=== PATIENT | female | born 1965 | race Caucasian/White ===

== ENCOUNTER → 2017-05-27 | Outpatient (CLI) | payer BC, SELFPAY | PROVIDERS: Visit Provider Physician Assistant | DX: R53.83 Other fatigue (principal); E55.9 Vitamin D deficiency, unspecified; E03.8 Other specified hypothyroidism | CPT/HCPCS: 80053; 80061; 82306; 82607; 82746; 84436; 84443; 85025 ==

== ENCOUNTER → 2017-08-13 10:53 | Outpatient (REF) | payer BC, SELFPAY ==
[2017-08-13 18:08] LABS: Basophils # 0.1 K/mm3 (0-0.2); Basophils % 0.9 % (0.1-2.0); Eosinophils # 0.1 K/mm3 (0.0-0.4); Eosinophils % 1.3 % (0.1-12.0); Hematocrit 50.9 % (37.0-47.0); Hemoglobin 15.6 g/dL (12.2-16.2); Lymphocytes # 1.8 K/mm3 (0.7-4.5); Lymphocytes % 27.4 K/mm3 (10-50); Mean Corpuscular HGB Conc 30.6 g/dL (31.8-35.4); Mean Corpuscular Hemoglobin 29.2 pg (27.0-31.2); Mean Corpuscular Volume 95.4 fl (81-99); Mean Platelet Volume 9.4 fl (7.4-10.4); Monocytes # 0.5 K/mm3 (0.1-1.0); Neutrophils # 4.2 K/mm3 (1.8-7.8); Neutrophils % 63.4 % (37.0-80.0); Platelet Count 338 K/mm3 (142-424); Red Blood Count 5.34 M/mm3 (4.20-5.40); Red Cell Distribution Width 12.6 % (11.5-17.5); White Blood Count 6.6 K/mm3 (4.8-10.8)
[2017-08-13 19:32] LABS: Alanine Aminotransferase 34 U/L (12-78); Albumin Level 4.2 gm/dL (3.4-5.0); Albumin/Globulin Ratio 1.1 (1.1-1.8); Alkaline Phosphatase 63 U/L (46-116); Anion Gap 14.5 mEq/L (5-15); Aspartate Amino Transferase 12 U/L (15-37); Bilirubin,Total 0.3 mg/dL (0.2-1.0); Blood Urea Nitrogen 15 mg/dL (7-18); Calcium 9.3 mg/dL (8.5-10.1); Carbon Dioxide 28 mmol/L (21.0-32.0); Chloride 101 mmol/L (98-107); Chol/HDL Ratio 3.8 (1-3.5); Cholesterol 300 mg/dL (140-200); Creatinine,Serum 0.87 mg/dL (0.55-1.02); Estimated Glomerular Filt Rate 69 ml/min (>60); GFR (African American) 83 ML/MIN (>60); Globulin 3.7 gm/dl (1.3-3.2); Glucose 99 mg/dL (74-106); HDL Cholesterol 79 mg/dL (29-89); LDL Cholesterol 199 mg/dL (0-130); Magnesium 1.8 mg/dL (1.4-2.2); Potassium 4.5 mmoL/L (3.5-5.1); Sodium 139 mmol/L (136-145); T4 (Thyroxine) 12.2 ug/dl (4.7-13.3); Thyroid Stimulating Hormone 0.02 uIU/ml (0.358-3.740); Total Protein,Serum 7.9 gm/dL (6.4-8.2); Triglycerides 112 mg/dL (30-200); VLDL Cholesterol 22 mg/dL (0-40)
[2017-08-14 19:24] LABS: Vitamin B12 906 pg/mL (232-1245); Vitamin D 25 Hydroxy 43.6 ng/mL (30.0-100.0)
== END ==
LOC: LAB 10:53
PROVIDERS: Visit Provider Physician Assistant
DX: R00.2 Palpitations (principal); E03.9 Hypothyroidism, unspecified; E55.9 Vitamin D deficiency, unspecified
CPT/HCPCS: 80053; 80061; 82607; 82652; 83735; 84436; 84443; 85025

== ENCOUNTER → 2018-03-29 09:26 | Outpatient (REF) | payer BC, SELFPAY ==
[2018-03-29 13:56] LABS: Basophils # 0.1 K/mm3 (0-0.2); Basophils % 1.2 % (0.1-2.0); Eosinophils # 0.1 K/mm3 (0.0-0.4); Eosinophils % 1.3 % (0.1-12.0); Hematocrit 44.4 % (37.0-47.0); Hemoglobin 14.3 g/dL (12.2-16.2); Lymphocytes # 2.1 K/mm3 (0.7-4.5); Lymphocytes % 27.5 K/mm3 (10-50); Mean Corpuscular HGB Conc 32.2 g/dL (31.8-35.4); Mean Corpuscular Hemoglobin 29.9 pg (27.0-31.2); Mean Corpuscular Volume 92.8 fl (81-99); Mean Platelet Volume 8.5 fl (7.4-10.4); Monocytes # 0.5 K/mm3 (0.1-1.0); Monocytes % 6.3 % (1.7-9.3); Neutrophils # 4.8 K/mm3 (1.8-7.8); Neutrophils % 63.6 % (37.0-80.0); Platelet Count 330 K/mm3 (142-424); Red Blood Count 4.79 M/mm3 (4.20-5.40); Red Cell Distribution Width 12.9 % (11.5-17.5); White Blood Count 7.5 K/mm3 (4.8-10.8)
[2018-03-29 15:23] LABS: Alanine Aminotransferase 28 U/L (12-78); Albumin Level 3.6 gm/dL (3.4-5.0); Alkaline Phosphatase 67 U/L (46-116); Anion Gap 12.1 mEq/L (5-15); Aspartate Amino Transferase 15 U/L (15-37); Bilirubin,Total 0.4 mg/dL (0.2-1.0); Blood Urea Nitrogen 10 mg/dL (7-18); Calcium 8.7 mg/dL (8.5-10.1); Carbon Dioxide 30 mmol/L (21.0-32.0); Chloride 102 mmol/L (98-107); Chol/HDL Ratio 4.3 (1-3.5); Cholesterol 296 mg/dL (140-200); Creatinine,Serum 0.85 mg/dL (0.55-1.02); Estimated Glomerular Filt Rate 71 ml/min (>60); GFR (African American) 85 ML/MIN (>60); Globulin 3.5 gm/dl (1.3-3.2); Glucose 92 mg/dL (74-106); HDL Cholesterol 69 mg/dL (29-89); LDL Cholesterol 187 mg/dL (0-130); Potassium 4.1 mmoL/L (3.5-5.1); Sodium 140 mmol/L (136-145); T4 (Thyroxine) 10.8 ug/dl (4.7-13.3); Thyroid Stimulating Hormone 0.22 uIU/ml (0.358-3.740); Total Protein,Serum 7.1 gm/dL (6.4-8.2); Triglycerides 200 mg/dL (30-200); VLDL Cholesterol 40 mg/dL (0-40)
[2018-03-30 15:56] LABS: Vitamin B12 965 pg/mL (232-1245); Vitamin D 25 Hydroxy 35.4 ng/mL (30.0-100.0)
== END ==
LOC: LAB 09:26
PROVIDERS: Visit Provider Physician Assistant
DX: R53.83 Other fatigue (principal); E03.9 Hypothyroidism, unspecified; E78.5 Hyperlipidemia, unspecified; D51.9 Vitamin B12 deficiency anemia, unspecified
CPT/HCPCS: 80053; 80061; 82607; 82652; 84436; 84443; 85025

== ENCOUNTER → 2018-08-19 12:07 | Outpatient (CLI) | payer OTHER, SELFPAY ==
--- NOTE | 2018-08-19 12:15 | XR_ITS ---
XR ribs BI min 4V w CXR1V HISTORY: Recent rib fractures., Pain and deformity ITS.REASON: fracture ORDERING PHYSICIAN: SHAWN Fulton PATIENT AGE: 52 years Comparison: None FINDINGS: There are no recent exams available at this institution for comparison. Frontal view of the chest shows cardiomegaly with postmedian sternotomy change. There are multiple old bilateral rib fractures with pleural reaction right. There are old fractures of the right second through sixth ribs laterally with old fracture of the left fourth fifth and sixth ribs posteriorly. The right rib fractures are displaced with the apex of the fractures extending medially toward the lung. There has been prior vertebral plasty at T11. No evidence of pneumothorax. There is mild pleural thickening on the right with mild atelectatic changes in the right lung base. IMPRESSION: Healing bilateral rib fractures with pleural reaction on the right and mild right basilar atelectasis with small right effusion versus pleural thickening. Correlation with old exams needed.
--- NOTE | 2018-08-19 12:15 | XR_ITS ---
XR scapula RT CLINICAL INDICATION: Follow-up fracture ITS.REASON: fracture ORDERING PHYSICIAN: SHAWN Fulton PATIENT AGE: 52 years Comparison: None FINDINGS: No recent exams available for comparison. There are multiple healing right-sided rib fractures. The glenohumeral joint has an unremarkable appearance. There is some heterogeneous density in the mid scapular region which may be related to healing fracture. No displaced fracture evident. IMPRESSION: Heterogeneous density in the mid scapular region laterally which may related to healing fracture.
== END ==
PROVIDERS: PCP Emergency Medicine; Visit Provider Physician Assistant
DX: T14.8XXA Other injury of unspecified body region, initial encounter (principal)
CPT/HCPCS: 71111; 73010

== ENCOUNTER → 2018-10-20 10:03 | Outpatient (CLI) | payer OTHER, BC, SELFPAY ==
--- NOTE | 2018-10-20 10:11 | XR_ITS ---
XR ribs BI min 4V w CXR1V HISTORY: Follow-up rib fractures ITS.REASON: fracture ORDERING PHYSICIAN: SHAWN Cervantes PATIENT AGE: 52 years Comparison: 08/19/2018 FINDINGS: Frontal view of the chest shows or Cardiomegaly without failure. There has been prior median sternotomy and kyphoplasty at T11. There are multiple old bilateral rib fractures which do not appear significantly changed. Right-sided pleural thickening once again noted. No evidence of pneumothorax. No new abnormalities apparent. IMPRESSION: No change healing multiple bilateral rib fractures
== END ==
PROVIDERS: PCP Physician Assistant; Visit Provider Physician Assistant
DX: T14.8XXA Other injury of unspecified body region, initial encounter (principal); S22.43 Multiple fractures of ribs, bilateral
CPT/HCPCS: 71111

== ENCOUNTER → 2018-11-22 08:35 | Outpatient (CLI) | payer OTHER, BC, SELFPAY ==
--- NOTE | 2018-11-22 08:39 | XR_ITS ---
XR ribs BI min 4V w CXR1V HISTORY: Chest pain, follow-up rib fractures ITS.REASON: fracture ORDERING PHYSICIAN: SHAWN Cervantes PATIENT AGE: 53 years Comparison: 10/20/2018 FINDINGS: There are old bilateral rib fractures. No acute fractures are evident. There has been a prior median sternotomy and kyphoplasty of T10. No acute rib fractures evident. No lytic or blastic change. There is borderline cardiomegaly without failure. Lungs are clear bilaterally. IMPRESSION: No change old bilateral rib fractures. No acute finding
== END ==
PROVIDERS: PCP Emergency Medicine; Visit Provider Physician Assistant
DX: T14.8XXA Other injury of unspecified body region, initial encounter (principal); R07.81 Pleurodynia
CPT/HCPCS: 71111

== ENCOUNTER → 2018-12-27 07:16 | Outpatient (CLI) | payer OTHER, BC, SELFPAY ==
--- NOTE | 2018-12-27 07:20 | XR_ITS ---
XR ribs BI min 4V w CXR1V HISTORY: ITS.REASON: Fracture ORDERING PHYSICIAN: Kendall Harrison MD PATIENT AGE: 53 years Comparison: 11/22/2018. FINDINGS: Again seen are the chronic appearing bilateral rib fracture. There is no definite acute rib fracture. A frontal view of the chest shows no acute finding. Multiple views of the Left ribs were obtained. No fracture or dislocation. No lytic or blastic change. IMPRESSION: No evidence of acute rib fracture. Bilateral stable old rib fractures. No definite pleural effusion or pneumothorax.
== END ==
PROVIDERS: PCP Emergency Medicine; Visit Provider Emergency Medicine
DX: S22.43XK Multiple fractures of ribs, bilateral, subsequent encounter for fracture with nonunion (principal); T14.8XXA Other injury of unspecified body region, initial encounter
CPT/HCPCS: 71111

== ENCOUNTER 2019-01-21 09:00 | Outpatient (RCR) | payer OTHER, BC, SELFPAY | END 2019-01-21 09:05 | disposition home or self-care (01) | LOC: OT 09:00 | DX: S42.101A Fracture of unspecified part of scapula, right shoulder, initial encounter for closed fracture (principal) | CPT/HCPCS: 97014; 97035; 97110; 97140; 97164; 97165; G0283 ==

== ENCOUNTER → 2019-01-21 15:54 | Outpatient (CLI) | payer OTHER, SELFPAY ==
--- NOTE | 2019-01-21 15:57 | XR_ITS ---
PROCEDURE: XR RIBS BI MIN 4V W CXR1V CLINICAL INDICATION: Fracture Lower posterior rib pain COMPARISON: CXR CHEST(2 VIEWS-NOT PORTABLE) from 02/18/2014 CXR CHEST(2 VIEWS-NOT PORTABLE) from 11/09/2014 [id number] XR ribs BI min 4V w CXR1V from 08/19/2018 FINDINGS: Frontal view of the chest shows prior median sternotomy changes. There are multiple old bilateral rib fractures. No acute rib fractures evident. There has been prior kyphoplasty at T11. IMPRESSION: Old bilateral rib fractures, no acute finding Dictated by: Armond Patterson MD 01/21/2019 16:20 Signed by: <Electronically signed by Armond Patterson MD in [place]> 01/21/2019 16:20
== END ==
PROVIDERS: PCP Physician Assistant; Visit Provider Physician Assistant
DX: S22.39XA Fracture of one rib, unspecified side, initial encounter for closed fracture (principal)
CPT/HCPCS: 71111

== ENCOUNTER → 2019-03-02 14:58 | Outpatient (CLI) | payer BC, SELFPAY | PROVIDERS: Visit Provider Physician Assistant | DX: N39.0 Urinary tract infection, site not specified (principal) | CPT/HCPCS: 87086 ==

== ENCOUNTER → 2019-03-09 13:32 | Outpatient (CLI) | payer BC, SELFPAY | PROVIDERS: Visit Provider Physician Assistant | DX: N39.0 Urinary tract infection, site not specified (principal) | CPT/HCPCS: 87086 ==

== ENCOUNTER → 2019-08-24 14:50 | Outpatient (CLI) | payer OTHER, BC, SELFPAY ==
--- NOTE | 2019-08-24 14:50 | CT_ITS ---
PROCEDURE: CT CHEST WO CON CLINICAL INDICATION: Pulmonary Nodule Follow-up pulmonary nodule. Outside CT scan report from 02/04/2019 described an 8 mm pulmonary nodule in the right middle lobe. That study is not available for review. COMPARISON: ABDPELW/O CT ABD PELVIS W/O CONTRAST from 02/27/2017 TECHNIQUE: Axial images obtained with sagittal and coronal reformats. All CT scans at the facility use one or more dose reduction, viz: automated exposure control, ma/kV adjustment per patient size (including targeted exams where dose is matched to indication, i.e. head), or iterative reconstruction technique. FINDINGS: HEART AND MEDIASTINAL STRUCTURES: Unremarkable. LUNGS AND PLEURAL SPACES: No suspicious pulmonary nodules are evident. Calcified granuloma is present in the lingula. Calcified granuloma is present in the superior segment of left lower lobe. There is some irregular parenchymal opacity noted in the right middle lobe inferiorly probably related to pulmonary scarring. Would attempt to obtain old films for comparison. If no old films are made available then would recommend follow-up exam in 6 months. BONY STRUCTURES: Prior kyphoplasty at T11. midthoracic scoliosis convex right. There are multiple old bilateral rib fractures UPPER ABDOMEN: Nonobstructing 5 mm stone in the upper pole of the left kidney ADDITIONAL FINDINGS: No other significant abnormalities. IMPRESSION: 1. Probable scarring in the right middle lobe. Will attempt to obtain old films for comparison. Recommend follow-up in 6 months. 2. Left nephrolithiasis. Dictated by: Armond Patterson MD 08/26/2019 09:07 Electronically signed by Armond Patterson MD in [place] 08/26/2019 09:07
== END ==
PROVIDERS: PCP Physician Assistant; Visit Provider Physician Assistant
DX: R91.1 Solitary pulmonary nodule (principal)
CPT/HCPCS: 71250

== ENCOUNTER → 2019-10-26 13:28 | Outpatient (CLI) | payer OTHER, BC, SELFPAY ==
[2019-10-26 14:03] LABS: Alanine Aminotransferase 24 U/L (12-78); Albumin Level 4.4 g/dl (3.5-5.0); Albumin/Globulin Ratio 1.5 (1.1-1.8); Alkaline Phosphatase 47 U/L (38-126); Anion Gap 9.9 mEq/L (5-15); Aspartate Amino Transferase 29 U/L (14-36); Bilirubin,Total 0.4 mg/dl (0.2-1.3); Blood Urea Nitrogen 19 mg/dl (7-17); Calcium 9.5 mg/dl (8.4-10.2); Carbon Dioxide 28 mmol/L (22.0-30.0); Chloride 103 mmol/L (98-107); Chol/HDL Ratio 3.8 (1-3.5); Cholesterol 282 mg/dl (140-200); Estimated Glomerular Filt Rate 75 ml/min (>60); GFR (African American) 91 ML/MIN (>60); Globulin 2.9 g/dL (1.3-3.2); Glucose 109 mg/dl (74-100); HDL Cholesterol 75 mg/dl (40-60); Potassium 4.9 mmoL/L (3.5-5.1); Sodium 136 mmol/L (136-145); Total Protein,Serum 7.3 g/dl (6.3-8.2); Triglycerides 131 mg/dl (30-150); VLDL Cholesterol 26 mg/dL (0-40)
[2019-10-26 14:20] LABS: T4 (Thyroxine) 5.5 ug/dl (5.53-11.0)
[2019-10-26 14:27] LABS: Basophils # 0.1 K/mm3 (0-0.2); Basophils % 1.2 % (0.1-2.0); Eosinophils # 0.1 K/mm3 (0.0-0.4); Eosinophils % 1.4 % (0.1-12.0); Hematocrit 44.8 % (37.0-47.0); Hemoglobin 13.8 g/dL (12.2-16.2); Lymphocytes # 1.9 K/mm3 (0.7-4.5); Lymphocytes % 34.4 % (10-50); Mean Corpuscular HGB Conc 30.7 g/dL (31.8-35.4); Mean Corpuscular Hemoglobin 29.7 pg (27.0-31.2); Mean Corpuscular Volume 96.8 fl (81-99); Mean Platelet Volume 8.9 fl (7.4-10.4); Monocytes # 0.3 K/mm3 (0.1-1.0); Monocytes % 5.4 % (1.7-9.3); Neutrophils # 3.2 K/mm3 (1.8-7.8); Neutrophils % 57.6 % (37.0-80.0); Platelet Count 309 K/mm3 (142-424); Red Blood Count 4.62 M/mm3 (4.20-5.40); Red Cell Distribution Width 12.9 % (11.5-17.5); White Blood Count 5.6 K/mm3 (4.8-10.8)
[2019-10-27 11:38] LABS: Vitamin B12 576 pg/mL (232-1245); Vitamin D 25 Hydroxy 25.4 ng/mL (30.0-100.0)
== END ==
PROVIDERS: Visit Provider Physician Assistant
DX: E03.9 Hypothyroidism, unspecified (principal); E55.9 Vitamin D deficiency, unspecified; E78.5 Hyperlipidemia, unspecified; D51.9 Vitamin B12 deficiency anemia, unspecified
CPT/HCPCS: 80053; 80061; 82607; 82652; 84436; 84443; 85025

== ENCOUNTER → 2019-11-07 15:27 | Outpatient (CLI) | payer OTHER, SELFPAY ==
--- NOTE | 2019-11-07 15:30 | MM_ITS ---
PROCEDURE: MM DIG SCREENING MAMM BI W/CAD Digital Breast Tomosynthesis Included CLINICAL INDICATION: Screening There is a history of breast cancer patient's maternal grandmother diagnosed before menopause. There has been previous breast reduction surgery performed in 2017. COMPARISON: DMDXUAVL DIG MAMM-DX UNI ADD VIEWS-LT from 12/02/2012 DMDXUL DIG MAMM-DX UNI-LT from 06/30/2013 DMSB DIG MAMM-SCREEN ALEXANDER W/CAD from 03/19/2017 TECHNIQUE: Standard CC and MLO images and 3D Tomosynthesis was obtained. R2 CAD reviewed. FINDINGS: Mild scattered fibroglandular densities are seen throughout both breasts. Minimal post surgical scarring is seen in each breast. Nikolay images were reviewed showing no suspicious abnormality. There are no suspicious microcalcifications. IMPRESSION: Fibrofatty parenchyma with no suspicious lesions seen BI-RAD Category: 1 Negative FOLLOW-UP: 1YR 1 Year Follow-up (A letter has been sent to the patient regarding results of the study.) Dictated by: Dr. Sterilng Little MD 11/08/2019 07:[address] Sterling Little MD in [place] 11/08/2019 07:42
== END ==
PROVIDERS: PCP Physician Assistant; Visit Provider Physician Assistant
DX: Z12.31 Encounter for screening mammogram for malignant neoplasm of breast (principal)
CPT/HCPCS: 77063; 77067

== ENCOUNTER → 2020-03-05 08:53 | Outpatient (CLI) | payer OTHER, SELFPAY ==
[2020-03-05 10:34] LABS: Coronavirus 19 IgG Antibody Negative (Negative); Coronavirus 19 IgM Antibody Negative (Negative)
== END ==
PROVIDERS: Visit Provider Surgery
DX: Z01.89 Encounter for other specified special examinations (principal); Z13.810 Encounter for screening for upper gastrointestinal disorder; Z12.11 Encounter for screening for malignant neoplasm of colon
CPT/HCPCS: 36415; 86328

== ENCOUNTER 2020-03-06 07:31 | Day surgery (SDC) | payer OTHER, SELFPAY ==
[2020-03-05 11:05] VITALS: BMI 26.6
[2020-03-06] VITALS (9 sets, daily range): BP systolic 95–127; BP diastolic 60–82; PULSE 62–77; RESP 12–18; TEMP 36.2–36.5; O2SAT 96–99
--- NOTE | 2020-03-06 08:34 | HMH.ANESCL ---
[facility] Anesthesia Checklist - Patient Identification Patient Identification: Arm Band - Structural Data Admitted From: Home Planned Operative Procedure/s: egd/colonoscopy Consent for Planned Operative Procedure(s) Verified: Yes Verified Documents: Surgical Consent, History and Physical - NPO Status Verified Time NPO: 00:00 - Additional verifications Anesthesia Reactions: No - Airway Assessment C-Spine Mobility Assessed: Yes (mp2) TMJ Mobility Assessed: Yes Dentition: Good Dentition - Neurological Assessment Level of Consciousness: Awake, Alert - Anesthesia Plan Anesthesia Risk discussed: Yes Anesthesia Plan: Verified ASA Class: II Anesthesia Type: MAC [facility] History I have reviewed the patient's past medical history: Yes Medical History: Reports:: Arrhythmia, Cancer (thyroid), Hyperlipidemia Denies:: Diabetes Mellitus Type 1, Diabetes Mellitus Type 2, Internal Pacemaker, MRSA, Seizures *Have you ever received a pneumonia vaccine?: No *Have you received a flu vaccine this season?: No Other Medical History: Reports: Thyroid Disease Anesthesia experience/problems:: nac Laterality Cases: Bilateral: Tonsillectomy Other Surgeries: Yes: Appendectomy, Cardiac Surgery, Cholecystectomy, Colonoscopy, EGD, Hysterectomy-Total, Thyroidectomy, Other. No: Pacemaker Amputation: No Fractures: Yes - *Social History Last grade of school completed: Some college Smoking Status: Never smoker Alcohol Intake: current Alcohol Intake Frequency:: holidays/special occasions only Substance Use Type: denies use *Occupational Status:: employed Housing: house Household Members: spouse *Travel in the last 8 weeks: None Family Hx:: Cancer, Stroke, Heart Attack, Hypertension, Thyroid Disorder
--- NOTE | 2020-03-06 09:36 | HMH.SCOPE ---
- Procedure: Date: 03/06/20 Patient Date of :: 1965 Procedure Performed:: Esophagogastroduodenoscopy with biopsies and injection epinephrine and clip deployment Total colonoscopy with polypectomy by biopsy and snare. Indications:: A 54-year-old female referred for possible upper endoscopy and colonoscopy. I had actually seen her in the past. She has reported history of traumatic brain injury and ADD D. She describes a longstanding history of stomach trouble . This is been going on for years. She has had multiple upper endoscop[place] [address] Giuliano Francis and I had performed upper endoscopy 10/21/2005, 01/25/2013, 08/07/2015. She has had findings in the past consistent with gastritis and esophagitis. She had been treated with Dexilant which helped her symptoms but insurance is reportedly no longer covering this. She has taken omeprazole and this is only minimally helpful. She describes occasional flareups of gastritis characterized by abdominal pain and bloating with symptoms of dyspepsia and heartburn. She does have a family history of colon cancer with an aunt and grandfather who had colon cancer. She has had some passage of blood with bowel movements. She had colonoscopy on 02/15/2013 with a couple of diminutive polyps and diverticuli. I had recommended a 5-year follow-up colonoscopy. Performing Provider:: Jabier Costa MD Referring Provider:: Jemma Gonzáles Sedation:: MAC sedation Procedure:: Patient was taken to endoscopy procedure room. She was positioned in a lateral decubitus position. Adequate intravenous sedation was achieved. Olympus endoscope was inserted via the oropharynx. Majority of the esophagus appeared unremarkable. Gastroesophageal junction was encountered at approximately 35 cm from the incisors. There was some erosive esophagitis and possible Ellis's esophagus. Stomach was cannulated and insufflated. She had a small sliding hiatal hernia. There were a couple of small possible fundic gland polyps. Gastric antral mucosal biopsy was obtained for CLOtest for H. pylori. Pylorus was traversed. Duodenum was unremarkable. Gastric biopsy was obtained for histopathologic analysis. Couple biopsies were obtained of the gastric polyps. Endoscope was withdrawn into the distal esophagus. A couple of biopsies were obtained at the gastroesophageal junction/distal esophagus where there is evidence of possible Ellis's and erosive esophagitis. There is some minor oozing. To ensure hemostasis epinephrine was injected. Total of 7.5 mL was injected. There appeared to be good hemostasis. However Endo Clip was deployed to ensure hemostasis. Endoscope was then advanced into the stomach which was desufflated. Endoscope was withdrawn. Next attention was turned to colonoscopy. Variable stiffness Olympus colonoscope was inserted via the anus. With some minor difficulty due to floppiness of the sigmoid colon it was advanced to the cecum. Colonic preparation was fair as there was undigested vegetable food matter and unabsorbed medication within the colon. Ileocecal valve and appendiceal orifice were clearly identified. On the ileocecal valve there is a minor mucosal irregularity which was biopsied with cold biopsy forceps. Colonoscope was withdrawn through the colon. At the hepatic flexure there is a small polyp removed with cold cutting snare. Transverse colon there was a diminutive polyp removed with cold biopsy forceps. In the sigmoid colon there were 3 small polyps removed with cold cutting snare. Retroflexion within the rectum revealed no evidence of any pathologic internal hemorrhoids. Colonoscope was withdrawn. Findings:: Distal erosive esophagitis Mild nonerosive gastritis Probable fundic gland polyps Minor mucosal irregularity, likely lymphoid nodule, on the ileocecal valve Hepatic flexure polyp Transverse colon polyp Sigmoid colon polyp x3 Recommendations:: Follow-up on histopatholog
== END 2020-03-06 10:38 | disposition home or self-care (01) ==
LOC: OUTP 07:32
PROVIDERS: PCP Physician Assistant; Visit Provider Surgery
PROC: 0DJ08ZZ Inspection of Upper Intestinal Tract, Via Natural or Artificial Opening Endoscopic (ICD-10-PCS; CPT 43235; principal; 2020-03-06 08:30)
DX: Z12.11 Encounter for screening for malignant neoplasm of colon (principal); K63.5 Polyp of colon; K22.10 Ulcer of esophagus without bleeding; K29.60 Other gastritis without bleeding; K31.7 Polyp of stomach and duodenum; K63.89 Other specified diseases of intestine; Z87.19 Personal history of other diseases of the digestive system; Z86.010 Personal history of colon polyps; E78.5 Hyperlipidemia, unspecified; I49.9 Cardiac arrhythmia, unspecified; Z85.850 Personal history of malignant neoplasm of thyroid; Z90.89 Acquired absence of other organs
CPT/HCPCS: 45385; 45380; 43236; 43239; 87339

== ENCOUNTER → 2020-04-11 17:52 | Outpatient (CLI) | payer OTHER, BC, SELFPAY ==
[2020-04-11 18:47] LABS: Basophils # 0.1 K/mm3 (0-0.2); Basophils % 0.9 % (0.1-2.0); Eosinophils # 0.1 K/mm3 (0.0-0.4); Eosinophils % 2.3 % (0.1-12.0); Hematocrit 42.7 % (37.0-47.0); Lymphocytes # 1.8 K/mm3 (0.7-4.5); Lymphocytes % 30.1 % (10-50); Mean Corpuscular HGB Conc 30.5 g/dL (31.8-35.4); Mean Corpuscular Hemoglobin 29.2 pg (27.0-31.2); Mean Corpuscular Volume 95.6 fl (81-99); Mean Platelet Volume 8.8 fl (7.4-10.4); Monocytes # 0.4 K/mm3 (0.1-1.0); Monocytes % 6.3 % (1.7-9.3); Neutrophils # 3.5 K/mm3 (1.8-7.8); Neutrophils % 60.4 % (37.0-80.0); Platelet Count 281 K/mm3 (142-424); Red Blood Count 4.46 M/mm3 (4.20-5.40); Red Cell Distribution Width 12.2 % (11.5-17.5); White Blood Count 5.9 K/mm3 (4.8-10.8)
[2020-04-11 18:51] LABS: Alanine Aminotransferase 21 U/L (12-78); Albumin Level 4.4 g/dl (3.5-5.0); Albumin/Globulin Ratio 1.5 (1.1-1.8); Alkaline Phosphatase 59 U/L (38-126); Anion Gap 13.2 mEq/L (5-15); Aspartate Amino Transferase 26 U/L (14-36); Bilirubin,Total 0.4 mg/dl (0.2-1.3); Blood Urea Nitrogen 17 mg/dl (7-17); Calcium 9.3 mg/dl (8.4-10.2); Carbon Dioxide 30 mmol/L (22.0-30.0); Chloride 103 mmol/L (98-107); Chol/HDL Ratio 4.8 (1-3.5); Cholesterol 322 mg/dl (140-200); Estimated Glomerular Filt Rate 65 ml/min (>60); GFR (African American) 79 ML/MIN (>60); Globulin 2.9 g/dL (1.3-3.2); Glucose 106 mg/dl (74-100); HDL Cholesterol 67 mg/dl (40-60); Potassium 4.2 mmoL/L (3.5-5.1); Sodium 142 mmol/L (136-145); Total Protein,Serum 7.3 g/dl (6.3-8.2); Triglycerides 319 mg/dl (30-150); VLDL Cholesterol 64 mg/dL (0-40)
[2020-04-11 19:03] LABS: Direct LDL Cholesterol 197.12 mg/dL (100-129)
[2020-04-11 19:08] LABS: T4 (Thyroxine) 6.3 ug/dl (5.53-11.0)
[2020-04-11 19:09] LABS: 25-OH Vitamin D, Total 22.9 ng/mL (30-100)
[2020-04-11 19:21] LABS: Thyroid Stimulating Hormone 2.94 uIU/mL (0.465-4.68)
== END ==
PROVIDERS: Visit Provider Physician Assistant
DX: E03.9 Hypothyroidism, unspecified (principal); E55.9 Vitamin D deficiency, unspecified; E78.5 Hyperlipidemia, unspecified
CPT/HCPCS: 80053; 80061; 82306; 84436; 84443; 85025

== ENCOUNTER → 2020-06-06 11:09 | Outpatient (CLI) | payer OTHER, BC, SELFPAY ==
[2020-06-06 11:39] LABS: Basophils # 0.1 K/mm3 (0-0.2); Basophils % 1.5 % (0.1-2.0); Eosinophils # 0.2 K/mm3 (0.0-0.4); Hematocrit 47.3 % (37.0-47.0); Hemoglobin 15.6 g/dL (12.2-16.2); Lymphocytes # 1.9 K/mm3 (0.7-4.5); Lymphocytes % 33.5 % (10-50); Mean Corpuscular Hemoglobin 30.5 pg (27.0-31.2); Mean Corpuscular Volume 92.5 fl (81-99); Mean Platelet Volume 7.8 fl (7.4-10.4); Monocytes # 0.4 K/mm3 (0.1-1.0); Monocytes % 6.7 % (1.7-9.3); Neutrophils # 3.1 K/mm3 (1.8-7.8); Neutrophils % 55.3 % (37.0-80.0); Platelet Count 299 K/mm3 (142-424); Red Blood Count 5.11 M/mm3 (4.20-5.40); Red Cell Distribution Width 12.8 % (11.5-17.5); White Blood Count 5.5 K/mm3 (4.8-10.8)
[2020-06-06 12:13] LABS: Alanine Aminotransferase 36 U/L (12-78); Albumin Level 5.2 g/dl (3.5-5.0); Albumin/Globulin Ratio 1.3 (1.1-1.8); Alkaline Phosphatase 73 U/L (38-126); Anion Gap 13.9 mEq/L (5-15); Aspartate Amino Transferase 38 U/L (14-36); Bilirubin,Total 0.7 mg/dl (0.2-1.3); Blood Urea Nitrogen 13 mg/dl (7-17); Carbon Dioxide 31 mmol/L (22.0-30.0); Chloride 97 mmol/L (98-107); Estimated Glomerular Filt Rate 65 ml/min (>60); GFR (African American) 79 ML/MIN (>60); Globulin 3.9 g/dL (1.3-3.2); Glucose 104 mg/dl (74-100); Potassium 3.9 mmoL/L (3.5-5.1); Sodium 138 mmol/L (136-145); Total Protein,Serum 9.1 g/dl (6.3-8.2)
[2020-06-06 12:18] LABS: C-Reactive Protein 2.1 mg/L (0-4)
[2020-06-06 12:41] LABS: Erythrocyte Sedimentation Rate 17 mm/hr (0-30)
[2020-06-07 11:50] LABS: RA Latex Turbid. <10.0 IU/mL (0.0-13.9)
[2020-06-07 15:10] LABS: Anti-Centromere B Antibodies <0.2 AI (0.0-0.9); Anti-Jo-1 <0.2 AI (0.0-0.9); Anti-Smith Antibody <0.2 AI (0.0-0.9); Antichromatin Antibodies <0.2 AI (0.0-0.9); Antiscleroderma-70 Antibodies <0.2 AI (0.0-0.9); RNP Antibodies 0.2 AI (0.0-0.9); Sjogren's Anti-SS-A <0.2 AI (0.0-0.9); Sjogren's Anti-SS-B <0.2 AI (0.0-0.9)
[2020-06-07 15:17] LABS: Anti-DNA (DS) Ab Qn <1 IU/mL (0-9)
[2020-06-08 00:07] LABS: PTT-LA 30.2 sec (0.0-51.9); dRVVT 38.6 sec (0.0-47.0)
[2020-06-08 02:33] LABS: Anti-Cyclic Citrullinated Pept 5 units (0-19)
[2020-06-08 02:34] LABS: Lupus Reflex Interpretation Comment: (.)
== END ==
PROVIDERS: Visit Provider Physician Assistant
DX: M25.522 Pain in left elbow (principal); M25.542 Pain in joints of left hand; M25.9 Joint disorder, unspecified; M25.521 Pain in right elbow; M25.541 Pain in joints of right hand
CPT/HCPCS: 36415; 80053; 85025; 85613; 85651; 86140; 86200; 86225; 86235; 86431; 86618

== ENCOUNTER → 2020-08-17 10:13 | Outpatient (CLI) | payer OTHER, BC, SELFPAY ==
--- NOTE | 2020-08-17 10:13 | US_ITS ---
PROCEDURE: US BREAST RT COMPLETE CLINICAL INDICATION: lump Tender area right breast COMPARISON: No exams were available for comparison FINDINGS: Ultrasound survey performed of the right breast including axilla. No cystic or solid nodules are identified. There are few small nodes in the right axilla 1 of which measures 3 cm. IMPRESSION: No cystic or solid nodules apparent. There is a mildly prominent right axillary lymph node at 3 cm. If adenopathy is a concern then, CT with contrast may be of further value. Negative ultrasound does not exclude pathology in the breast. If there is indeed a palpable nodule in the breast, then diagnostic mammogram may provide further evaluation. Dictated by: Armond Patterson MD 08/23/2020 08:36 Armond Patterson MD in [place] 08/23/2020 08:36
== END ==
PROVIDERS: PCP Physician Assistant; Visit Provider Obstetrics & Gynecology
DX: N63.10 Unspecified lump in the right breast, unspecified quadrant (principal)
CPT/HCPCS: 76641

== ENCOUNTER → 2020-08-30 13:30 | Outpatient (CLI) | payer OTHER, BC, SELFPAY ==
--- NOTE | 2020-08-30 13:30 | MM_ITS ---
PROCEDURE: MM DIG MAMM DX UNILAT RT CAD Digital Breast Tomosynthesis Included CLINICAL INDICATION: mass Right breast thickness with pain COMPARISON: MG DMDXUL DIG MAMM-DX UNI-LT from 06/30/2013 MG DMSB DIG MAMM-SCREEN ALEXANDER W/CAD from 03/19/2017 MG MM DIG SCREENING MAMM BI W/CAD from 11/07/2019 US US BREAST RT COMPLETE from 08/17/2020 TECHNIQUE: Standard CC and MLO images and 3D Tomosynthesis was obtained. R2 CAD reviewed. FINDINGS: Patient has had right breast reduction. Linear areas of increased density are noted in the upper outer aspect of the right breast which has developed since the reduction consistent with some scarring. No malignant appearing mass or malignant-appearing microcalcification.. On the CC view there was a questionable stellate density in the outer aspect of the right breast which did not persist on and XCC view. This is also not duplicated on the tomogram images. Recent ultrasound of the right breast was noncontributory. IMPRESSION: No evidence of malignancy. Postsurgical changes. Negative mammogram and negative ultrasound does not exclude the possibility of malignancy. If there is a palpable nodule then, it should be managed on clinical basis. Suggest follow-up screening mammogram bilaterally November 2020. BI-RAD Category: 2 Benign Finding(s) FOLLOW-UP: 3M 3 Month Follow-up (A letter has been sent to the patient regarding results of the study.) Dictated by: Armond Patterson MD 08/31/2020 13:54 Armond Patterson MD in [place] 08/31/2020 13:54
== END ==
PROVIDERS: PCP Physician Assistant; Visit Provider Obstetrics & Gynecology
DX: N63.10 Unspecified lump in the right breast, unspecified quadrant (principal); N64.4 Mastodynia
CPT/HCPCS: 77061; 77065; G0279

== ENCOUNTER 2020-09-10 09:59 | Emergency (ER) | payer OTHER, BC, SELFPAY ==
[2020-09-10 10:03] VITALS: BP 130/72; PULSE 85; RESP 16; TEMP 36.3; O2SAT 95; BMI 27.1
--- NOTE | 2020-09-10 10:12 | CT_ITS ---
PROCEDURE: CT ABDOMEN PELVIS WO CON CLINICAL INDICATION: epigastric pain Epigastric pain with vomiting and diarrhea COMPARISON: CT ABDPELW/O CT ABD PELVIS W/O CONTRAST from 02/27/[address] CHEST WO CON from 08/24/2019 TECHNIQUE: Axial images obtained with sagittal and coronal reformats. All CT scans at the facility use one or more dose reduction, viz: automated exposure control, ma/kV adjustment per patient size (including targeted exams where dose is matched to indication, i.e. head), or iterative reconstruction technique. FINDINGS: LOWER THORAX: No acute finding ABDOMEN & PELVIS: Prior cholecystectomy. There is a 12 mm hypodensity in the right hepatic lobe inferiorly indeterminate. The liver is otherwise unremarkable. The spleen, adrenal glands, and pancreas has an unremarkable unenhanced appearance. There are small bilateral renal calculi measuring up 4 mm in the upper pole on the left and 2 mm in the mid polar region on the right. No ureteral calculi parent. No intestinal obstruction or free air. There is given history of prior appendectomy. There are few colonic diverticula within the sigmoid colon. No evidence of diverticulitis. Prior hysterectomy. There are some fluid-filled loops of small and large bowel with a few nonspecific air-fluid levels. No significant distension. Prior kyphoplasty at T11 with mild wedge compression changes of T11 unchanged. L5 has a corrugated appearance consistent with hemangioma involvement. Injection granulomas are present within the buttocks. IMPRESSION: Possible mild enteritis 12 mm indeterminate lesion of the right hepatic lobe. Consider nonemergent MRI with hemangioma protocol without and with gadolinium enhancement. Colonic diverticulosis without evidence of diverticulitis. Nonobstructing bilateral renal calculi Dictated by: Armond Patterson MD 09/10/2020 11:13 Armond Patterson MD in [place] 09/10/2020 11:13
--- NOTE | 2020-09-10 10:16 | PC.NURSE ---
notified rad of CT order
--- NOTE | 2020-09-10 10:25 | PC.NURSE ---
pt to CT
--- NOTE | 2020-09-10 10:39 | PC.NURSE ---
per lab pt specimens were all specimens were hemolyzed, states they will come down and recollect specimens
[2020-09-10 10:41] LABS: Basophils # 0.1 K/mm3 (0-0.2); Basophils % 0.4 % (0.1-2.0); Eosinophils # 0.2 K/mm3 (0.0-0.4); Eosinophils % 1.9 % (0.1-12.0); Hematocrit 45.5 % (37.0-47.0); Lymphocytes # 1.8 K/mm3 (0.7-4.5); Lymphocytes % 15.7 % (10-50); Mean Corpuscular HGB Conc 30.7 g/dL (31.8-35.4); Mean Corpuscular Volume 94.5 fl (81-99); Mean Platelet Volume 8.1 fl (7.4-10.4); Monocytes # 0.5 K/mm3 (0.1-1.0); Monocytes % 4.2 % (1.7-9.3); Neutrophils % 77.7 % (37.0-80.0); Platelet Count 277 K/mm3 (142-424); Red Blood Count 4.82 M/mm3 (4.20-5.40); Red Cell Distribution Width 12.5 % (11.5-17.5); White Blood Count 11.6 K/mm3 (4.8-10.8)
[2020-09-10 11:04] LABS: Chloride 104 mmol/L (98-107); Potassium 4.3 mmoL/L (3.5-5.1); Sodium 138 mmol/L (136-145)
[2020-09-10 11:06] LABS: Alanine Aminotransferase 23 U/L (12-78); Aspartate Amino Transferase 32 U/L (14-36); Blood Urea Nitrogen 14 mg/dl (7-17); Creatinine Clearance Estimated 112 mL/min (50-200); Estimated Glomerular Filt Rate 88 ml/min (>60); GFR (African American) 106 ML/MIN (>60)
[2020-09-10 11:07] LABS: Albumin Level 4.3 g/dl (3.5-5.0); Albumin/Globulin Ratio 1.5 (1.1-1.8); Alkaline Phosphatase 60 U/L (38-126); Anion Gap 10.3 mEq/L (5-15); Bilirubin,Total 0.6 mg/dl (0.2-1.3); Calcium 9.2 mg/dl (8.4-10.2); Carbon Dioxide 28 mmol/L (22.0-30.0); Globulin 2.9 g/dL (1.3-3.2); Glucose 116 mg/dl (74-100); Lipase 36 U/L (23-300); Total Protein,Serum 7.2 g/dl (6.3-8.2)
[2020-09-10 11:20] LABS: Troponin I < 0.01 ng/ml (0.00-0.034)
[2020-09-10 11:46] VITALS: BP 132/88; PULSE 82; O2SAT 96
--- NOTE | 2020-09-10 11:48 | HMH.EDNVD ---
ED Disposition Clinical Impression: Gastroenteritis Disposition: Home, Self-Care Condition on Discharge: Good Instructions: DI for Viral Gastroenteritis -- Adult Prescriptions: Promethazine HCl [Phenergan 25mg tablet] 25 mg PO Q8HP PRN #12 tab PRN Reason: Nausea And Vomiting Transmission Status: Pending to [facility] Referrals: Jemma Gonzáles PA [Primary Care Provider] - - Critical Care Critical Care Time: No Attestation: On 09/10/20, the high probability of a clinically significant, sudden or life threatening deterioration of the following system(s) required my full and direct attention, intervention and personal management. The time I documented below is in addition to time spent performing reported procedures but includes the following listed in this critical care notation. Medical Decision Making - Medical Records Medical records reviewed: Yes: I reviewed the patient's medical records. - Abraham Inquiry Pt receiving controlled substance: No Vital Signs: 09/10/20 10:03 Temperature 97.4 F L Temperature Source Oral Pulse Rate [Right Radial] 85 Respiratory Rate 16 Blood Pressure [Right Arm] 130/72 Blood Pressure Mean [Right Arm] 91 Blood Pressure Source [Right Arm] Automatic Cuff Blood Pressure Position [Right Arm] Sitting 02 Sat by Pulse Oximetry 95 Oxygen Delivery Method Room Air - Lab Data Lab Results 09/10/20 10:15: WBC 11.6 H, RBC 4.82, Hgb 14.0, Hct 45.5, MCV 94.5, MCH 29.0, MCHC 30.7 L, RDW 12.5, Plt Count 277, MPV 8.1, Neut % (Auto) 77.7, Lymph % (Auto) 15.7, [place] % (Auto) 4.2, Eos % (Auto) 1.9, Baso % (Auto) 0.4, Neut # (Auto) 9.0 H, Lymph # (Auto) 1.8, [place] # (Auto) 0.5, Eos # (Auto) 0.2, Baso # (Auto) 0.1 09/10/20 10:55: Sodium 138, Potassium 4.3, Chloride 104, Carbon Dioxide 28, Anion Gap 10.3, BUN 14, Creatinine 0.70, Estimated Creat Clear 112, Estimated GFR 88, Est GFR ( Amer) 106, Glucose 116 H, Calcium 9.2, Total Bilirubin 0.6, AST 32, ALT 23, Alkaline Phosphatase 60, Troponin I < 0.01, Total Protein 7.2, Albumin 4.3, Globulin 2.9, Albumin/Globulin Ratio 1.5, Lipase 36 Result diagrams: 09/10/20 10:15 09/10/20 10:55 Orders (Tests/Meds): ED MEDICATIONS Generic Name Dose Route Start Last Admin Trade Name Freq PRN Reason Stop Dose Admin Sodium Chloride 10 ml 09/10/20 10:12 Sodium Chloride 0.9% 10ml Vial IV 10/10/20 10:11 NEEDED PRN dilute protonix Discontinued Medications Generic Name Dose Route Start Last Admin Trade Name Freq PRN Reason Stop Dose Admin Sodium Chloride 1,000 mls @ 999 mls/hr 09/10/20 10:15 09/10/20 10:19 Sod Chlor 0.9% 1000ml Bag IV 09/10/20 11:15 999 mls/hr .Q1H1M CARMELITA Administration Pantoprazole Sodium 40 mg 09/10/20 10:12 09/10/20 10:19 Pantoprazole 40mg Vial IV 09/10/20 10:13 40 mg ONCE ONE Administration Promethazine HCl 25 mg 09/10/20 11:36 09/10/20 11:39 Promethazine Hcl 25mg/Ml 1ml Vial IV 09/10/20 11:37 25 mg ONCE ONE Administration Sodium Chloride 25 ml 09/10/20 11:36 09/10/20 11:39 Sodium Chloride 0.9% 25ml Bag IV 09/10/20 11:37 25 ml ONCE ONE Administration ORDERS Category Date Time Status Troponin I Q3H Lab 09/10/20 13:55 Ordered Troponin I Q3H Lab 09/10/20 16:55 Ordered - CT Data CT Scan: Abdomen, Pelvis Time Received: 11:[address] Reviewed: Yes: I have reviewed the patient's CT results, I have viewed the radiologist's interpretation Findings Narrative: IMPRESSION: Possible mild enteritis 12 mm indeterminate lesion of the right hepatic lobe. Consider nonemergent MRI with hemangioma protocol without and with gadolinium enhancement. Colonic diverticulosis without evidence of diverticulitis. Nonobstructing bilateral renal calculi - Reevaluation(s) Time: 11:59 Reevaluation #1: On reevaluation, patient is feeling better. Pain is improved. Nausea is also improved. She is tolerating oral intake. Findings are consiste
[2020-09-10 12:45] VITALS: BP 133/86; PULSE 80; RESP 16; TEMP 36.3; O2SAT 98
== END 2020-09-10 12:45 | disposition home or self-care (01) ==
PROVIDERS: Emergency Provider Emergency Medicine; PCP Physician Assistant
DX: K52.9 Noninfective gastroenteritis and colitis, unspecified (principal); E78.5 Hyperlipidemia, unspecified; E03.9 Hypothyroidism, unspecified; Z79.899 Other long term (current) drug therapy; Z88.5 Allergy status to narcotic agent; Z88.6 Allergy status to analgesic agent
CPT/HCPCS: 36415; 74176; 80053; 83690; 84484; 85025; 96365; 96375; 99283

== ENCOUNTER 2020-09-25 10:40 | Outpatient (CLI) | payer OTHER, BC, SELFPAY ==
[2020-09-25 10:40] VITALS: BMI 28.2
[2020-09-25 10:55] VITALS: BP 138/92; PULSE 94; RESP 20; TEMP 36.9; O2SAT 95
[2020-09-25 11:17] LABS: Basophils # 0.1 K/mm3 (0-0.2); Basophils % 0.6 % (0.1-2.0); Eosinophils # 0.2 K/mm3 (0.0-0.4); Eosinophils % 1.1 % (0.1-12.0); Hematocrit 43.1 % (37.0-47.0); Hemoglobin 13.8 g/dL (12.2-16.2); Lymphocytes # 1.9 K/mm3 (0.7-4.5); Lymphocytes % 13.3 % (10-50); Mean Corpuscular HGB Conc 32.1 g/dL (31.8-35.4); Mean Corpuscular Hemoglobin 29.2 pg (27.0-31.2); Mean Corpuscular Volume 90.9 fl (81-99); Mean Platelet Volume 8.1 fl (7.4-10.4); Monocytes # 0.8 K/mm3 (0.1-1.0); Monocytes % 5.6 % (1.7-9.3); Neutrophils # 11.2 K/mm3 (1.8-7.8); Neutrophils % 79.4 % (37.0-80.0); Platelet Count 339 K/mm3 (142-424); Red Blood Count 4.74 M/mm3 (4.20-5.40); Red Cell Distribution Width 12.5 % (11.5-17.5); White Blood Count 14.1 K/mm3 (4.8-10.8)
[2020-09-25 11:27] LABS: Chloride 99 mmol/L (98-107); Sodium 139 mmol/L (136-145)
[2020-09-25 11:29] LABS: Blood Urea Nitrogen 8 mg/dl (7-17); Creatinine Clearance Estimated 102 mL/min (50-200); Estimated Glomerular Filt Rate 75 ml/min (>60); GFR (African American) 91 ML/MIN (>60)
[2020-09-25 11:30] LABS: Alanine Aminotransferase 22 U/L (12-78); Albumin Level 4.7 g/dl (3.5-5.0); Albumin/Globulin Ratio 1.3 (1.1-1.8); Alkaline Phosphatase 90 U/L (38-126); Aspartate Amino Transferase 29 U/L (14-36); Bilirubin,Total 0.7 mg/dl (0.2-1.3); Calcium 9.4 mg/dl (8.4-10.2); Carbon Dioxide 30 mmol/L (22.0-30.0); Globulin 3.5 g/dL (1.3-3.2); Glucose 127 mg/dl (74-100); Total Protein,Serum 8.2 g/dl (6.3-8.2)
[2020-09-25 11:35] VITALS: BP 124/74; PULSE 90; RESP 20; TEMP 36.9; O2SAT 95
[2020-09-25 11:37] LABS: C-Reactive Protein 224.9 mg/L (0-4)
[2020-09-25 12:10] VITALS: BP 123/75; PULSE 78; RESP 20; TEMP 36.9; O2SAT 97
[2020-09-27 15:17] LABS: Anti-Cyclic Citrullinated Pept 4 units (0-19)
== END 2020-09-25 12:15 | disposition home or self-care (01) ==
LOC: INF 10:42
PROVIDERS: PCP Physician Assistant; Visit Provider Physician Assistant
DX: E86.0 Dehydration (principal); R11.10 Vomiting, unspecified; R19.7 Diarrhea, unspecified
CPT/HCPCS: 80053; 85025; 86140; 86200; 86431; 96360; 96375; J2405

== ENCOUNTER → 2021-01-08 12:30 | Outpatient (CLI) | payer OTHER, BC, SELFPAY ==
[2021-01-08 12:32] LABS: Adenovirus F 40/41, stool Not Detected (NotDetected); Astrovirus Not Detected (NotDetected); Campylobacter Not Detected (NotDetected); Clostridium Difficile A/B, PCR Not Detected (NotDetected); Cryptosporidium Not Detected (NotDetected); Cyclospora Cayetanesis Not Detected (NotDetected); Entamoeba histolytica Not Detected (NotDetected); Enteroaggregative E coli Not Detected (NotDetected); Enteropathogenic E coli Not Detected (NotDetected); Enterotoxigenic E coli Not Detected (NotDetected); Giardia lamblia Not Detected (NotDetected); Norovirus Not Detected (NotDetected); Plesimonas Shigalloides, PCR Not Detected (NotDetected); Rotavirus A Not Detected (NotDetected); Salmonella, PCR Not Detected (NotDetected); Shiga-like toxin E coli Not Detected (NotDetected); Shigella Enterovasive E coli Not Detected (NotDetected); Vibrio Cholerae Not Detected (NotDetected); Vibrio, PCR Not Detected (NotDetected); Yersinia Entercolitica, PCR Not Detected (NotDetected)
[2021-01-08 13:07] LABS: Occult Blood,Stool Negative (Negative)
[2021-01-08 13:36] LABS: Chloride 99 mmol/L (98-107)
[2021-01-08 13:37] LABS: Potassium 4.6 mmoL/L (3.5-5.1); Sodium 139 mmol/L (136-145)
[2021-01-08 13:39] LABS: Alanine Aminotransferase 19 U/L (12-78); Albumin Level 4.2 g/dl (3.5-5.0); Albumin/Globulin Ratio 1.6 (1.1-1.8); Alkaline Phosphatase 63 U/L (38-126); Anion Gap 13.6 mEq/L (5-15); Aspartate Amino Transferase 29 U/L (14-36); Bilirubin,Total 0.4 mg/dl (0.2-1.3); Blood Urea Nitrogen 14 mg/dl (7-17); Calcium 8.9 mg/dl (8.4-10.2); Carbon Dioxide 31 mmol/L (22.0-30.0); Estimated Glomerular Filt Rate 65 ml/min (>60); GFR (African American) 79 ML/MIN (>60); Globulin 2.7 g/dL (1.3-3.2); Glucose 102 mg/dl (74-100); Total Protein,Serum 6.9 g/dl (6.3-8.2)
[2021-01-08 23:26] LABS: Sapovirus Detected (NotDetected)
[2021-01-09 15:12] LABS: Tissue Transglutaminase IgA Ab <2 U/mL (0-3); Tissue Transglutaminase IgG Ab <2 U/mL (0-5)
[2021-01-10 10:37] LABS: H. pylori Stool Ag, EIA Negative (Negative)
== END ==
PROVIDERS: Visit Provider Physician Assistant
DX: R19.7 Diarrhea, unspecified (principal); A08.11 Acute gastroenteropathy due to Norwalk agent
CPT/HCPCS: 36415; 80053; 82272; 83516; 87338; 87507; G0328

== ENCOUNTER 2021-01-18 10:20 | Outpatient (CLI) | payer OTHER, BC, SELFPAY ==
[2021-01-18 10:53] VITALS: BP 125/60; PULSE 64; RESP 17; TEMP 36.6; O2SAT 100
[2021-01-18 11:58] VITALS: BP 117/67; PULSE 60
[2021-01-18 12:55] VITALS: BP 121/68; PULSE 65; RESP 17; O2SAT 100
== END 2021-01-18 12:57 | disposition home or self-care (01) ==
LOC: INF 10:22
PROVIDERS: PCP Physician Assistant; Visit Provider Physician Assistant
DX: R19.7 Diarrhea, unspecified (principal); A08.11 Acute gastroenteropathy due to Norwalk agent; E86.0 Dehydration
CPT/HCPCS: 96360; 96361; 96375; J2405

== ENCOUNTER → 2021-02-25 17:54 | Outpatient (CLI) | payer OTHER, BC, SELFPAY ==
[2021-02-25 18:45] LABS: Alanine Aminotransferase 21 U/L (12-78); Albumin Level 4.1 g/dl (3.5-5.0); Albumin/Globulin Ratio 1.4 (1.1-1.8); Alkaline Phosphatase 54 U/L (38-126); Anion Gap 12.2 mEq/L (5-15); Aspartate Amino Transferase 32 U/L (14-36); Bilirubin,Total 0.4 mg/dl (0.2-1.3); Blood Urea Nitrogen 8 mg/dl (7-17); Calcium 8.8 mg/dl (8.4-10.2); Carbon Dioxide 30 mmol/L (22.0-30.0); Chloride 101 mmol/L (98-107); Chol/HDL Ratio 4.7 (1-3.5); Cholesterol 268 mg/dl (140-200); Estimated Glomerular Filt Rate 87 ml/min (>60); GFR (African American) 106 ML/MIN (>60); Globulin 2.9 g/dL (1.3-3.2); Glucose 97 mg/dl (74-100); HDL Cholesterol 57 mg/dl (40-60); Potassium 4.2 mmoL/L (3.5-5.1); Sodium 139 mmol/L (136-145); Triglycerides 277 mg/dl (30-150); VLDL Cholesterol 55 mg/dL (0-40)
[2021-02-25 18:46] LABS: Basophils # 0.1 K/mm3 (0-0.2); Basophils % 1.9 % (0.1-2.0); Eosinophils # 0.1 K/mm3 (0.0-0.4); Eosinophils % 1.6 % (0.1-12.0); Hemoglobin 14.2 g/dL (12.2-16.2); Lymphocytes # 1.9 K/mm3 (0.7-4.5); Lymphocytes % 41.9 % (10-50); Mean Corpuscular HGB Conc 32.9 g/dL (31.8-35.4); Mean Corpuscular Hemoglobin 30.1 pg (27.0-31.2); Mean Corpuscular Volume 91.4 fl (81-99); Mean Platelet Volume 9.4 fl (7.4-10.4); Monocytes # 0.3 K/mm3 (0.1-1.0); Monocytes % 6.3 % (1.7-9.3); Neutrophils # 2.2 K/mm3 (1.8-7.8); Neutrophils % 48.4 % (37.0-80.0); Platelet Count 258 K/mm3 (142-424); Red Blood Count 4.71 M/mm3 (4.20-5.40); Red Cell Distribution Width 12.8 % (11.5-17.5); White Blood Count 4.6 K/mm3 (4.8-10.8)
[2021-02-25 18:56] LABS: Direct LDL Cholesterol 147.97 mg/dL (100-129)
[2021-02-25 19:02] LABS: Free T4 (Free Thyroxine) 0.46 ng/dl (0.78-2.19)
[2021-02-25 19:03] LABS: 25-OH Vitamin D, Total 35.1 ng/mL (30-100)
[2021-02-25 19:34] LABS: Vitamin B12 411 pg/mL (239-931)
== END ==
PROVIDERS: Visit Provider Physician Assistant
DX: E03.9 Hypothyroidism, unspecified (principal); E78.5 Hyperlipidemia, unspecified; D51.9 Vitamin B12 deficiency anemia, unspecified; E55.9 Vitamin D deficiency, unspecified
CPT/HCPCS: 80053; 80061; 82306; 82607; 84439; 84443; 85025

== ENCOUNTER 2021-06-08 11:48 | Emergency (ER) | payer OTHER, SELFPAY ==
[2021-06-08 12:30] VITALS: BP 0/0; PULSE 0; RESP 0; TEMP -17.7; TEMP 0
== END 2021-06-08 12:31 | disposition left against medical advice (07) ==
LOC: UTC 11:50
PROVIDERS: Emergency Provider Nurse Practitioner Family; PCP Physician Assistant
DX: Z53.21 Procedure and treatment not carried out due to patient leaving prior to being seen by health care provider (principal)

== ENCOUNTER → 2021-06-08 11:53 | Outpatient (CLI) | payer OTHER, BC, SELFPAY ==
--- NOTE | 2021-06-08 | XR_ITS ---
PROCEDURE INFORMATION: Exam: XR Right Ribs with PA Chest Exam date and time: 06/08/2021 12:00 AM Age: 55 years old Clinical indication: Chest wall pain; Right TECHNIQUE: Imaging protocol: XR Right ribs with PA chest. Views: 3 views COMPARISON: CT CHEST WO CON 08/24/2019 3:45 PM FINDINGS: Tubes, catheters and devices: Multiple sternal cerclage wires overlie the sternum. Surgical clips overlie the gallbladder fossa. Multiple sternal cerclage wires overlie the sternum. Lungs: Unremarkable. No consolidation. Pleural spaces: Unremarkable. No pleural effusion. No pneumothorax. Heart/Mediastinum: Unremarkable. No cardiomegaly. Bones/joints: Multiple healed rib fractures are present bilaterally. Lower thoracic vertebral plasty present. IMPRESSION: Multiple healed rib fractures are present bilaterally.
== END ==
PROVIDERS: PCP Physician Assistant; Visit Provider Nurse Practitioner Family
DX: R07.81 Pleurodynia (principal)
CPT/HCPCS: 71101

== ENCOUNTER 2021-06-10 08:23 | Emergency (ER) | payer OTHER, BC, SELFPAY ==
[2021-06-10 08:24] VITALS: BP 133/78; PULSE 84; RESP 18; TEMP 36.8; O2SAT 97; BMI 27.1
--- NOTE | 2021-06-10 08:28 | HMH.EDGENADL ---
ED Disposition Clinical Impression: Musculoskeletal pain, Rib pain on right side Disposition: Home, Self-Care Condition on Discharge: Good Referrals: Jemma Gonzáles PA [Primary Care Provider] - - Critical Care Critical Care Time: No Attestation: On 06/10/21, the high probability of a clinically significant, sudden or life threatening deterioration of the following system(s) required my full and direct attention, intervention and personal management. The time I documented below is in addition to time spent performing reported procedures but includes the following listed in this critical care notation. Medical Decision Making - Medical Records Medical records reviewed: Yes: I reviewed the patient's medical records. - Abraham Inquiry Pt receiving controlled substance: No Vital Signs: 06/10/21 08:24 Temperature 98.3 F Temperature Source Oral Pulse Rate [Right Radial] 84 Respiratory Rate 18 Blood Pressure [Right Arm] 133/78 Blood Pressure Mean [Right Arm] 96 Blood Pressure Source [Right Arm] Automatic Cuff Blood Pressure Position [Right Arm] Sitting 02 Sat by Pulse Oximetry 97 Oxygen Delivery Method Room Air - Lab Data Lab results reviewed: Yes: I reviewed the patient's lab results. Lab Results 06/10/21 08:52: WBC 5.6, RBC 4.68, Hgb 13.9, Hct 43.2, MCV 92.2, MCH 29.7, MCHC 32.2, RDW 12.6, Plt Count 290, MPV 8.6, Neut % (Auto) 54.3, Lymph % (Auto) 34.4, Mayes % (Auto) 5.7, Eos % (Auto) 2.6, Baso % (Auto) 3.0 H, Neut # (Auto) 3.0, Lymph # (Auto) 1.9, Mayes # (Auto) 0.3, Eos # (Auto) 0.1, Baso # (Auto) 0.2 06/10/21 08:52: D-Dimer 0.61 H 06/10/21 08:52: Sodium 139, Potassium 3.5, Chloride 101, Carbon Dioxide 32 H, Anion Gap 9.5, BUN 14, Creatinine 0.70, Estimated Creat Clear 111, Estimated GFR 87, Est GFR ( Amer) 106, Glucose 120 H, Calcium 8.9, Total Bilirubin 0.5, AST 33, ALT 22, Alkaline Phosphatase 50, Total Protein 7.0, Albumin 4.2, Globulin 2.8, Albumin/Globulin Ratio 1.5 Result diagrams: 06/10/21 08:52 06/10/21 08:52 Orders (Tests/Meds): ED MEDICATIONS Generic Name Dose Route Start Last Admin Trade Name Freq PRN Reason Stop Dose Admin Lidocaine 1 each 06/10/21 09:00 06/10/21 09:08 Lidocaine 5% Transdermal Patch TP 07/10/21 08:59 1 each Q24H CARMELITA Administration Methocarbamol 750 mg 06/10/21 09:00 06/10/21 09:07 Methocarbamol 500mg Tablet PO 07/10/21 08:59 750 mg BID CARMELITA Administration Discontinued Medications Generic Name Dose Route Start Last Admin Trade Name Freq PRN Reason Stop Dose Admin Acetaminophen 1,000 mg 06/10/21 08:53 06/10/21 09:08 Acetaminophen 500mg Tab PO 06/10/21 08:54 1,000 mg ONCE ONE Administration Oxycodone HCl 5 mg 06/10/21 10:11 Oxycodone 5mg Immediate Release Tablet PO 06/10/21 10:12 ONCE ONE - CT Data CT Scan: Chest Time Received: 11:00 Findings Narrative: CT Chest w/o IV contrast: IMPRESSION: Old healed fractures of the right 5th and 6th ribs. Small sliding-type hiatal hernia. Multiple nonobstructing left kidney stones. Medical Decision Narrative: Patient is a 55yo female presenting with inferior/anterior right sided rib cage pain. Differential diagnosis includes, but is not limited to, musculoskeletal pain, rib fracture, cellulitis/abscess, PE, pneumonia. On initial exam, patient is hemodynamically stable and nontoxic-appearing. Pain is reproducible with palpation but given worsening with breathing, patient will be evaluated CBC, CMP, D-dimer to rule out other underlying pathology. Patient was offered symptomatic management but states that she has tried everything at home and her pain is too severe. Given this, patient was evaluated with CT chest. She was treated with p.o. Tylenol, p.o. Robaxin and a lidocaine patch. Patient reports improvement in symptoms though it was aggravated again by having CT imaging done. She was treated with p.o. oxycodone. Lab work is unremarkable and shows m
[2021-06-10 09:05] LABS: Basophils # 0.2 K/mm3 (0-0.2); Eosinophils # 0.1 K/mm3 (0.0-0.4); Eosinophils % 2.6 % (0.1-12.0); Hematocrit 43.2 % (37.0-47.0); Hemoglobin 13.9 g/dL (12.2-16.2); Lymphocytes # 1.9 K/mm3 (0.7-4.5); Lymphocytes % 34.4 % (10-50); Mean Corpuscular HGB Conc 32.2 g/dL (31.8-35.4); Mean Corpuscular Hemoglobin 29.7 pg (27.0-31.2); Mean Corpuscular Volume 92.2 fl (81-99); Mean Platelet Volume 8.6 fl (7.4-10.4); Monocytes # 0.3 K/mm3 (0.1-1.0); Monocytes % 5.7 % (1.7-9.3); Neutrophils % 54.3 % (37.0-80.0); Platelet Count 290 K/mm3 (142-424); Red Blood Count 4.68 M/mm3 (4.20-5.40); Red Cell Distribution Width 12.6 % (11.5-17.5); White Blood Count 5.6 K/mm3 (4.8-10.8)
[2021-06-10 09:14] LABS: Alanine Aminotransferase 22 U/L (12-78); Albumin Level 4.2 g/dl (3.5-5.0); Albumin/Globulin Ratio 1.5 (1.1-1.8); Alkaline Phosphatase 50 U/L (38-126); Anion Gap 9.5 mEq/L (5-15); Aspartate Amino Transferase 33 U/L (14-36); Bilirubin,Total 0.5 mg/dl (0.2-1.3); Blood Urea Nitrogen 14 mg/dl (7-17); Calcium 8.9 mg/dl (8.4-10.2); Carbon Dioxide 32 mmol/L (22.0-30.0); Chloride 101 mmol/L (98-107); Creatinine Clearance Estimated 111 mL/min (50-200); Estimated Glomerular Filt Rate 87 ml/min (>60); GFR (African American) 106 ML/MIN (>60); Globulin 2.8 g/dL (1.3-3.2); Glucose 120 mg/dl (74-100); Potassium 3.5 mmoL/L (3.5-5.1); Sodium 139 mmol/L (136-145)
[2021-06-10 09:19] LABS: D-Dimer 0.61 ug/mL (0.0-0.5)
--- NOTE | 2021-06-10 09:26 | CT_ITS ---
FINAL REPORT TECHNIQUE: Axial images were obtained through the chest without contrast. CLINICAL HISTORY: Increasing rt rib pain s/o injury at work FINDINGS: There is a calcified granuloma in the medial left upper lobe and the posterior left lower lobe. The heart size is normal. There is no pericardial or pleural effusion. There is a small sliding-type hiatal hernia. Limited images of the upper abdomen demonstrates multiple nonobstructive renal stones in the left kidney collecting system measuring up to 3 mm in greatest diameter. No suspicious infiltrate or nodule identified. There are healed fracture deformities within the right 5th and 6th ribs seen on images 33-48 of series 4. IMPRESSION: Old healed fractures of the right 5th and 6th ribs. Small sliding-type hiatal hernia. Multiple nonobstructing left kidney stones. Reviewed, Interpreted and Dictated by Tobias Lai MD Transcribed by Yue Acuña Authenticated by Tobias Lai MD on 06/10/2021 10:58:29 AM [facility]
[2021-06-10 11:22] VITALS: BP 124/87; PULSE 78; RESP 18; TEMP 36.7; O2SAT 98
== END 2021-06-10 11:25 | disposition home or self-care (01) ==
PROVIDERS: Emergency Provider Emergency Medicine; PCP Physician Assistant
DX: R07.81 Pleurodynia (principal); E03.9 Hypothyroidism, unspecified; M79.18 Myalgia, other site; E78.5 Hyperlipidemia, unspecified
CPT/HCPCS: 71250; 80053; 85025; 85378; 99282

== ENCOUNTER → 2021-06-25 15:36 | Outpatient (CLI) | payer OTHER, SELFPAY | PROVIDERS: PCP Physician Assistant; Visit Provider Nurse Practitioner | DX: U07.1 COVID-19 (principal) | CPT/HCPCS: C9803; U0003; U0005 ==

== ENCOUNTER → 2021-08-16 15:16 | Outpatient (CLI) | payer OTHER, BC, SELFPAY | PROVIDERS: Visit Provider Emergency Medicine | DX: M54.9 Dorsalgia, unspecified (principal); B95.8 Unspecified staphylococcus as the cause of diseases classified elsewhere | CPT/HCPCS: 87086; 87088; 87186 ==

== ENCOUNTER → 2021-08-26 06:57 | Outpatient (CLI) | payer OTHER, BC, SELFPAY ==
--- NOTE | 2021-08-26 06:58 | CT_ITS ---
FINAL REPORT TECHNIQUE: Axial images through the abdomen and pelvis were performed without contrast. This study was performed with techniques to keep radiation doses as low as reasonably achievable, (ALARA). Individualized dose reduction techniques using automated exposure control or adjustment of mA and/or kV according to the patient's size were employed. CLINICAL HISTORY: r/o Kidney Stone, bilateral flank pain COMPARISON: 09/10/2020 FINDINGS: ABDOMEN: The lung bases are clear. The heart size is normal. Again seen is an indeterminate, low-attenuation focus in the medial right hepatic lobe measuring 15 mm, previously measuring 12 mm. The spleen is normal. No adrenal mass is identified. The aorta is normal in caliber. There is no significant free fluid or adenopathy. There is moderate, bilateral, nonobstructing nephrolithiasis measuring up to 4 mm in greatest dimension. There is no hydronephrosis. PELVIS: The appendix is not identified. Phleboliths are noted in the pelvis. The urinary bladder is unremarkable. There is no significant free fluid or adenopathy. IMPRESSION: Indeterminate right hepatic lesion now measuring 15 mm, previously measured 12 mm. Recommend a liver mass protocol CT or ultrasound for further evaluation. Bilateral, nonobstructing nephrolithiasis. Reviewed, Interpreted and Dictated by Tobias Lai MD Transcribed by Neha Kyle Authenticated by Tobias Lai MD on 08/26/2021 10:42:31 AM [facility]
== END ==
PROVIDERS: PCP Physician Assistant; Visit Provider Emergency Medicine
DX: R10.9 Unspecified abdominal pain (principal); Z87.442 Personal history of urinary calculi
CPT/HCPCS: 74176

== ENCOUNTER → 2021-08-28 19:27 | Outpatient (CLI) | payer OTHER, BC, SELFPAY | PROVIDERS: Visit Provider Physician Assistant | DX: M54.6 Pain in thoracic spine (principal); N39.0 Urinary tract infection, site not specified; B96.20 Unspecified Escherichia coli [E. coli] as the cause of diseases classified elsewhere | CPT/HCPCS: 87086; 87088; 87186 ==

== ENCOUNTER → 2021-09-06 10:52 | Outpatient (CLI) | payer OTHER, BC, SELFPAY ==
[2021-09-06 14:28] LABS: Basophils # 0.1 K/mm3 (0-0.2); Basophils % 1.6 % (0.1-2.0); Eosinophils # 0.1 K/mm3 (0.0-0.4); Eosinophils % 1.5 % (0.1-12.0); Hematocrit 44.7 % (37.0-47.0); Hemoglobin 14.4 g/dL (12.2-16.2); Lymphocytes # 1.8 K/mm3 (0.7-4.5); Lymphocytes % 28.7 % (10-50); Mean Corpuscular HGB Conc 32.3 g/dL (31.8-35.4); Mean Corpuscular Volume 92.9 fl (81-99); Mean Platelet Volume 9.1 fl (7.4-10.4); Monocytes # 0.5 K/mm3 (0.1-1.0); Monocytes % 7.1 % (1.7-9.3); Neutrophils # 3.9 K/mm3 (1.8-7.8); Neutrophils % 61.2 % (37.0-80.0); Platelet Count 323 K/mm3 (142-424); Red Blood Count 4.81 M/mm3 (4.20-5.40); White Blood Count 6.3 K/mm3 (4.8-10.8)
[2021-09-06 14:59] LABS: Anion Gap 11.2 mEq/L (5-15); Blood Urea Nitrogen 18 mg/dl (7-17); Calcium 8.8 mg/dl (8.4-10.2); Carbon Dioxide 28 mmol/L (22.0-30.0); Chloride 103 mmol/L (98-107); Estimated Glomerular Filt Rate 87 ml/min (>60); GFR (African American) 106 ML/MIN (>60); Glucose 94 mg/dl (74-100); Potassium 5.2 mmoL/L (3.5-5.1); Sodium 137 mmol/L (136-145)
== END ==
PROVIDERS: Visit Provider Emergency Medicine
DX: N39.0 Urinary tract infection, site not specified (principal)
CPT/HCPCS: 80048; 85025; 87086

== ENCOUNTER → 2021-09-12 07:52 | Outpatient (CLI) | payer OTHER, BC, SELFPAY ==
--- NOTE | 2021-09-12 07:52 | CT_ITS ---
FINAL REPORT TECHNIQUE: Pre- and postcontrast images of the abdomen were performed by computed tomography. This study was performed with techniques to keep radiation doses as low as reasonably achievable (ALARA). Individualized dose reduction techniques using automated exposure control or adjustment of mA and/or kV according to the patient's size were employed. CLINICAL HISTORY: liver mass follow up COMPARISON: 08/26/2021 FINDINGS: The lung bases are clear. On pre contrast imaging, small nonobstructing bilateral renal stones are seen measuring less than 3 mm. There is a less than 1 cm cyst in the upper pole of the left kidney. Kidneys otherwise demonstrate normal enhancement. A mass is again seen in the inferomedial right hepatic lobe measuring 15 mm with peripheral, discontinuous contrast enhancement which increases over time. This has CT imaging characteristics of a hemangioma. No other hepatic mass is identified. The spleen is unremarkable. The adrenals are normal. The pancreas is unremarkable. There is a small hiatal hernia. Patient is status post hysterectomy. There is no free fluid or adenopathy. IMPRESSION: Stable, 15 mm right hepatic lobe mass with imaging characteristics consistent with hemangioma. Small, bilateral nonobstructing renal stones. Reviewed, Interpreted and Dictated by Jabier Byers III, MD Transcribed by Neha Kyle Authenticated by Jabier Byers III, MD on 09/12/2021 10:26:14 AM [facility]
== END ==
PROVIDERS: PCP Physician Assistant; Visit Provider Physician Assistant
DX: R16.0 Hepatomegaly, not elsewhere classified (principal)
CPT/HCPCS: 74170; Q9967

== ENCOUNTER → 2021-11-20 15:23 | Outpatient (CLI) | payer OTHER, SELFPAY | PROVIDERS: PCP Physician Assistant; Visit Provider Urology | DX: Z01.812 Encounter for preprocedural laboratory examination (principal); Z20.822 Contact with and (suspected) exposure to COVID-19; N30.20 Other chronic cystitis without hematuria | CPT/HCPCS: C9803; U0003; U0005 ==

== ENCOUNTER 2021-11-22 11:07 | Day surgery (SDC) | payer OTHER, BC, SELFPAY ==
[2021-11-19 14:24] VITALS: BMI 29.2
[2021-11-22] VITALS (10 sets, daily range): BP systolic 110–130; BP diastolic 52–88; PULSE 52–78; RESP 12–18; TEMP 36.3–36.6; O2SAT 95–100
--- NOTE | 2021-11-22 16:19 | P.PN_ITS ---
[facility] Anesthesia Checklist - Structural Data Admitted From: Home Planned Operative Procedure/s: cysto Consent for Planned Operative Procedure(s) Verified: Yes - Additional verifications Anesthesia Reactions: Yes (nausea) Hx Blood Transfusions: No Blood Transfusion Reaction: No - Airway Assessment C-Spine Mobility Assessed: Yes TMJ Mobility Assessed: Yes Dentition: Good Dentition - Neurological Assessment Level of Consciousness: Awake, Alert, Appropriate - Anesthesia Plan Anesthesia Risk discussed: Yes ASA Class: II Anesthesia Type: General [facility] History I have reviewed the patient's past medical history: Yes Medical History: Reports:: Arrhythmia, Asthma, Cancer (THYROID), Hyperlipidemia, Kidney Stones Denies:: Diabetes Mellitus Type 1, Diabetes Mellitus Type 2, Internal Pacemaker, MRSA, Seizures *Have you ever received a pneumonia vaccine?: No *Have you received a flu vaccine this season?: No Other Medical History: Reports: Thyroid Disease. Denies: Blood Transfusion Reaction Anesthesia experience/problems:: none Laterality Cases: Bilateral: Tonsillectomy Other Surgeries: Yes: No Previous Surgery, Appendectomy, Cancer Surgery, Cardiac Surgery, Cholecystectomy, Colonoscopy, EGD, Hysterectomy-Total, Thyroidectomy, Other. No: Pacemaker Amputation: No Fractures: Yes - *Social History Last grade of school completed: High school graduate Smoking Status: Never smoker Alcohol Intake: current Alcohol Intake Frequency:: holidays/special occasions only Substance Use Type: denies use *Occupational Status:: employed Housing: house Household Members: spouse *Travel in the last 8 weeks: None Family Hx:: Cancer, Stroke, Heart Attack, Hypertension, Thyroid Disorder
--- NOTE | 2021-11-22 16:37 | HMH.ANESI ---
[facility] Anesthesia Record Part I Intake, IV Amount: 800 Estimated blood loss (mL): 0 Urine output (mL): 0 Blood Pressure: 127/87 SaO2: 96 Pulse Rate: 78 Respiratory Rate: 12 Temperature: 97.8 F Patient is:: Awake, Stable Stable to PACU at:: 16:30
--- NOTE | 2021-11-22 17:03 | PC.NURSE ---
Addendum entered by Christen Quinonez RN 11/22/21 17:20: No new orders Original Note: 1459- anesthesia notified of pt heart rate
--- NOTE | 2021-11-22 18:18 | P.OP_ITS ---
Date of procedure: 11/22/21 Pre-op Diagnosis:: Bladder pain, urethral pain, dysuria Post-op Diagnosis:: Interstitial cystitis Procedure performed:: Cystoscopy with hydrodistention Surgeon:: Rudy Last MD SALES REPRESENTATIVE [employer]CRAFT:: Gokul Johnson Anesthesia: LMA Estimated blood loss (mL): 0 Clinical Note:: 56-year-old white female with persistent lower urinary tract symptoms, dysuria, bladder pain urethral pain presents for cystoscopic evaluation. Operative findings:: Bladder on initial examination was within normal limits. With hydrodistention her bladder capacity was noted to be 900cc. There were findings of petechial hemorrhages after a hydrodistention. Operative note:: Patient taken to the operating room after informed consent was obtained. She was placed on the operating table in the supine position general anesthesia administered. Preoperative antibiotics and sequential compression devices place d. She was then placed into the dorsal lithotomy position and prepped draped in the standard surgical fashion. A 22 Salomon passed into the urethra and easily into the bladder. The bladder was examined in a systematic fashion and there was no evidence of mucosal abnormalities, stones, diverticula or trabeculation. The ureteral orifices in their normal anatomic position and clear efflux of urine was noted. The bladder neck and urethra were normal. With the 3 L bag placed at 31 cm above the abdomen water was allowed to flow into the bladder under gravity field. Once the water flow slowed water was stopped and the bladder emptied. There was a 900 cc bladder capacity noted. Looking back in with the cystoscope there is noted to be petechial hemorrhages with bleeding. The bladder was filled once more and after stopping it again showed 900 cc capacity. Looking back in again there was at the same amount of petechial hemorrhages noted. There was hematuria noted as well. The bladder was distended once more and drained. The bladder was then emptied the scope removed. Urojet placed into the urethra. She tolerated procedure well. I discussed the findings with the patient and her after recovery. Even though her bladder capacity is normal she did have the hemorrhagic areas and I am going to start her on Elmiron 100 mg twice daily. She will follow-up in 3 weeks. Condition: stable Disposition: PACU Specimens:: None Complications:: None
[2021-11-25 08:10] VITALS: BP 120/88; PULSE 56; TEMP 36.3
--- NOTE | 2021-11-25 08:10 | P.PN_ITS ---
[facility] Anesthesia Record Part II Discharge Time: 17:00 Destination: [facility] PACU nurse assessment reviewed?: Yes Patient Condition:: Good Anesthesia Complications:: None Swallowing reflex intact?: Yes Cyanosis?: No Blood Pressure: 120/88 Pulse Rate: 56 Temperature: 97.3 F Mental Status: Alert & Oriented Pain level:: 0 Nausea and/or vomitting:: None Intake, IV Amount: 500
== END 2021-11-22 17:50 | disposition home or self-care (01) ==
LOC: OR 11:10
PROVIDERS: PCP Physician Assistant; Visit Provider Urology
PROC: 0TJB8ZZ Inspection of Bladder, Via Natural or Artificial Opening Endoscopic (ICD-10-PCS; CPT 52000; principal; 2021-11-22 11:15)
DX: N30.10 Interstitial cystitis (chronic) without hematuria (principal); Z87.442 Personal history of urinary calculi; I49.9 Cardiac arrhythmia, unspecified; J45.909 Unspecified asthma, uncomplicated; K21.9 Gastro-esophageal reflux disease without esophagitis; E78.5 Hyperlipidemia, unspecified; Z79.899 Other long term (current) drug therapy
CPT/HCPCS: 52260; 96374; J2405

== ENCOUNTER → 2021-11-27 09:08 | Outpatient (CLI) | payer OTHER, BC, SELFPAY ==
[2021-11-26 17:19] LABS: Alanine Aminotransferase 27 U/L (12-78); Albumin Level 4.1 g/dl (3.5-5.0); Albumin/Globulin Ratio 1.5 (1.1-1.8); Alkaline Phosphatase 57 U/L (38-126); Anion Gap 10.4 mEq/L (5-15); Aspartate Amino Transferase 34 U/L (14-36); Basophils # 0.1 K/mm3 (0-0.2); Basophils % 1.6 % (0.1-2.0); Bilirubin,Total 0.4 mg/dl (0.2-1.3); Blood Urea Nitrogen 12 mg/dl (7-17); Calcium 9.2 mg/dl (8.4-10.2); Carbon Dioxide 34 mmol/L (22.0-30.0); Chloride 99 mmol/L (98-107); Chol/HDL Ratio 4.6 (1-3.5); Cholesterol 252 mg/dl (140-200); Eosinophils # 0.1 K/mm3 (0.0-0.4); Eosinophils % 1.4 % (0.1-12.0); Estimated Glomerular Filt Rate 74 ml/min (>60); GFR (African American) 90 ML/MIN (>60); Globulin 2.8 g/dL (1.3-3.2); Glucose 106 mg/dl (74-100); HDL Cholesterol 55 mg/dl (40-60); Hematocrit 46.6 % (37.0-47.0); Lymphocytes # 2.1 K/mm3 (0.7-4.5); Lymphocytes % 32.3 % (10-50); Mean Corpuscular HGB Conc 32.2 g/dL (31.8-35.4); Mean Corpuscular Hemoglobin 30.1 pg (27.0-31.2); Mean Corpuscular Volume 93.3 fl (81-99); Monocytes # 0.6 K/mm3 (0.1-1.0); Neutrophils # 3.5 K/mm3 (1.8-7.8); Neutrophils % 55.8 % (37.0-80.0); Platelet Count 318 K/mm3 (142-424); Potassium 4.4 mmoL/L (3.5-5.1); Red Cell Distribution Width 12.8 % (11.5-17.5); Sodium 139 mmol/L (136-145); Total Protein,Serum 6.9 g/dl (6.3-8.2); Triglycerides 253 mg/dl (30-150); VLDL Cholesterol 51 mg/dL (0-40); White Blood Count 6.3 K/mm3 (4.8-10.8)
[2021-11-26 17:30] LABS: Direct LDL Cholesterol 118.49 mg/dL (100-129)
[2021-11-26 17:49] LABS: Thyroid Stimulating Hormone 2.49 uIU/mL (0.465-4.68)
[2021-11-26 18:08] LABS: Vitamin B12 603 pg/mL (239-931)
[2021-12-13 17:11] LABS: 1,25 Dihydroxy Vitamin D 28 pg/mL (.); 1,25-Dihydroxy, Vitamin D-2 <10 pg/mL (.); 1,25-Dihydroxy, Vitamin D-3 28 pg/mL (.)
== END ==
PROVIDERS: Visit Provider Physician Assistant
DX: Z00.00 Encounter for general adult medical examination without abnormal findings (principal); I10 Essential (primary) hypertension; E53.8 Deficiency of other specified B group vitamins; E55.9 Vitamin D deficiency, unspecified; R53.83 Other fatigue
CPT/HCPCS: 80053; 80061; 82607; 82652; 84443; 85025

== ENCOUNTER → 2021-11-29 10:11 | Outpatient (CLI) | payer OTHER, BC, SELFPAY | PROVIDERS: PCP Physician Assistant; Visit Provider Physician Assistant | DX: R00.1 Bradycardia, unspecified (principal) | CPT/HCPCS: 93225; 93226 ==

== ENCOUNTER → 2022-01-07 09:15 | Outpatient (CLI) | payer OTHER, BC, SELFPAY ==
--- NOTE | 2022-01-07 09:16 | CA_ITS ---
APPROVED REPORT Exam: Exercise Treadmill Technologist: Riana Tong, Ht: 5 ft 5 in Wt: 170 lbs BSA: 1.85 m2 HR: 61 bpm BP: 128/78 mmHg Rhythm: NSR, normal Medical History Medical History: Hyperlipidemia Medications: Sucralfate,,,,, Vit D3,,,,, Pregabalin,,,,, Methocarbamol,,,,, Hydroxychloroquine,,,,, ADderALL,,,,, OxYbutyIN,,,,, DexlansAPRAZOLE,,,,, Cardiac Risk Factors: Hyperlipidemia, FHX of CAD Stress Test Details Test: Benltey HR Resting HR: 75 bpm Max Heart Rate (APMHR): 165.194084 bpm Max HR Achieved: 142 bpm Target HR (85% APMHR): 140.785759 bpm % of APMHR: 86.06 Recovery HR: 122 bpm BP Resting BP: 126/85 mmHg Max BP: 156/84 mmHg Recovery BP: 142.0/82.0 mmHg ECG Resting ECG: NSR, normal Clinical Exercise duration: 09:01 min Highest Stage Achieved: Exercise capacity: 10.1 METs Stress ECG Conclusion During bentley protocol pt exercised total of 9 minutes, completing stafe 3. Pt experinced no CP. No arrhythmias noted. Allowing for motion artifact, the ST response to exercise is within normal. Test Summary REST . . . . . . . Sitting REST . . . . . . . Standing REST 03:40 0.0 0.0 75 . 126/ 85 . . Stage 1 01:00 10.0 1.7 93 . . . . Stage 1 02:00 10.0 1.7 109 . . . . Stage 1 03:00 10.0 1.7 104 . 142/ 80 . . Stage 2 01:00 12.0 2.5 119 . . . . Stage 2 02:00 12.0 2.5 117 . . . . Stage 2 03:00 12.0 2.5 124 . 150/ 80 . . Stage 3 01:00 14.0 3.4 130 . . . . Stage 3 02:00 14.0 3.4 138 . . . . Stage 3 03:00 14.0 3.4 138 . 156/ 84 . . Stage 4 00:01 16.0 4.2 138 . . . Stop exercise at 09:01 RECOVERY 01:00 0.0 0.0 109 . . . . RECOVERY 02:00 0.0 0.0 93 . 142/ 82 . . RECOVERY 03:00 0.0 0.0 87 . 144/ 90 . . RECOVERY 04:00 0.0 0.0 82 . 144/ 90 . . RECOVERY 05:00 0.0 0.0 78 . 140/ 82 . . RECOVERY 05:56 0.0 0.0 82 . 129/ 91 . . Electronically signed by : Rusty Hill MD 01/08/2022 06:51:13
--- NOTE | 2022-01-07 09:16 | CA_ITS ---
APPROVED REPORT EXAM: Comprehensive 2D, Doppler, and color-flow Echocardiogram Apartment Hotel Manager: Alina Bradshaw CRT Ht: 5 ft 5 in Wt: 170lbs BSA: 1.85 BP: 122/72 mmHg Indications: Chest Pain, Hyperlipidemia, pericardiectomy 1999, ablation as a young adult. tachycardia, bradycardia 2D Dimensions LVOT 1.99 cm (M/F) 1.5-2.5 LA Volume 23.80 mL LA Volume Index 12.90 mL/m2 (M/F) 16-34 M-Mode Dimensions RVDd 3.41 cm (0.9-2.6) LA Diam 3.05 cm (1.9-4.0) LVDd 3.59 cm (3.5-5.7) Ao Diam 4.23 cm (2.0-3.7) LVDs 2.48 cm (3.5-5.7) IVSd 1.69 cm (0.6-1.1) PWd 0.57 cm (0.6-1.1) EF (Teich) 59.50% FS 30.90% EDV (Teich) 54.10 mL ESV (Teich) 21.90 mL LV Diastology E Decel Time 283.00 (160-240 msec) E/A Ratio 0.92 MED E' 7.80 (< 7 cm/sec) MED A' 7.70 cm/s E'/MED E' Ratio 7.18 (>14) LAT E' 15.50 (<10 cm/sec) LAT A' 6.00 cm/s E/LAT E' Ratio 3.61 (>14) Aortic Valve AI PHT 591.00 ms AO Peak GR. 5.00 mmHg Mitral Valve MV A Velocity 61.00 (40-130 cm/s) E/A Ratio 0.92 MV Decel. Time 283.00 (160-240 ms) Pulmonary Valve PV Peak Velocity 141.00 (50-150 cm/s) Tricuspid Valve TR P. Velocity 202.00 cm/s RAP Estimate 10.00 mmHg RVSP 26.30 mmHg Left Ventricle Left atrium is mildly enlarged, left ventricle is normal size mild concentric left ventricular hypertrophy estimated ejection fraction 55% with no regional wall motion abnormality, diastolic parameters are inconclusive. Right Ventricle Right atrium and right ventricle are mildly enlarged with normal contractility. Aortic Valve Aortic valve is minimally thickened and fibrosed there is no aortic stenosis, there is trace aortic insufficiency. Mitral Valve Mitral valve grossly normal, there is trace mitral regurgitation. Tricuspid Valve Tricuspid valve grossly normal, there is trace tricuspid regurgitation. Tricuspid regurgitation jet velocity is inadequate for calculation of the right ventricular systolic pressure. Pulmonic Valve Pulmonic valve is poorly visualized. Great Vessels Aortic root is normal size. Inferior vena cava is normal size with normal inspiratory collapse. Pericardium No significant pericardial effusion noted. Conclusion 1. Biatrial enlargement, normal left ventricular size, mild concentric left ventricular hypertrophy, estimated ejection fraction 55% with no regional wall motion abnormality, diastolic parameters are inconclusive. 2. Mildly enlarged right ventricle with normal contractility. 3. Trace aortic, mitral and tricuspid regurgitation. 4. No significant pericardial effusion. 5. Inferior vena cava is normal 7 normal inspiratory collapse. Electronically signed by : Rusty Hill MD 01/08/2022 06:00:50
== END ==
LOC: RT 09:16
PROVIDERS: PCP Physician Assistant; Visit Provider Nurse Practitioner Family
DX: R06.00 Dyspnea, unspecified (principal); R00.1 Bradycardia, unspecified; R00.0 Tachycardia, unspecified; E78.5 Hyperlipidemia, unspecified; K21.9 Gastro-esophageal reflux disease without esophagitis; R94.31 Abnormal electrocardiogram [ECG] [EKG]; Z86.79 Personal history of other diseases of the circulatory system
CPT/HCPCS: 93017; 93306

== ENCOUNTER → 2022-02-11 08:27 | Outpatient (CLI) | payer OTHER, BC, SELFPAY ==
[2022-02-11 14:43] LABS: Amphetamine/Metha Screen,Urine Positive ng/ml (<1000)
[2022-02-11 14:44] LABS: Barbiturates Screen,Urine Negative ng/ml (<200)
[2022-02-11 14:45] LABS: Benzodiazepines Screen,Urine Negative ng/ml (<200); Cannabinoid Screen,Urine Negative ng/ml (<50)
[2022-02-11 14:46] LABS: Cocaine Screen,Urine Negative ng/ml (<300); Methadone Screen,Urine Negative ng/ml (<300)
[2022-02-11 14:47] LABS: Opiate Screen,Urine Negative ng/ml (<300)
[2022-02-11 14:48] LABS: Phencyclidine Screen,Urine Negative ng/ml (<25)
== END ==
PROVIDERS: PCP Physician Assistant; Visit Provider Physician Assistant
DX: F90.9 Attention-deficit hyperactivity disorder, unspecified type (principal)
CPT/HCPCS: 80305

== ENCOUNTER → 2022-03-25 10:16 | Outpatient (CLI) | payer OTHER, BC, SELFPAY ==
--- NOTE | 2022-03-25 10:16 | CT_ITS ---
FINAL REPORT TECHNIQUE: Axial CT images of the abdomen were obtained with IV contrast only. Coronal reformatted images were also obtained. This study was performed with techniques to keep radiation doses as low as reasonably achievable (ALARA). Individualized dose reduction techniques using automated exposure control or adjustment of mA and/or kV according to the patient''s size were employed. CLINICAL HISTORY: benign hemangioma follow-up COMPARISON: 09/12/2021 FINDINGS: CT ABDOMEN WITH CONTRAST The lung bases are clear. There is a 15 mm peripherally enhancing mass in the inferomedial right hepatic lobe that previously measured 15 mm. Has an appearance most consistent with a hemangioma. No new hepatic mass is identified. There are postoperative changes from cholecystectomy. There is mild extrahepatic biliary ductal dilatation that is stable and may represent a post cholecystectomy change. There is no evidence of biliary ductal dilatation. The pancreas appears normal. The spleen size is within normal limits. There is a less than 1 cm cyst in the upper pole of the right kidney that is stable. There are 2 small nonobstructing left renal stones that were present on the prior exam. There is no evidence hydronephrosis. There is no evidence of adenopathy. No abnormal fluid collection is seen. No localized inflammatory processes identified. There is a stable L5 vertebrae hemangioma. There is a left paracentral L4-5 disc protrusion which is visually larger. If indicated lumbar spine MRI may be helpful. IMPRESSION: Stable 15 mm peripherally enhancing mass in the inferomedial right hepatic lobe. No new hepatic mass is identified. Left paracentral L4-5 disc protrusion which is visually larger. If indicated lumbar spine MRI may be helpful. Reviewed, Interpreted and Dictated by Jabier Byers III, MD Transcribed by Yue Acuña Authenticated and [facility]
== END ==
PROVIDERS: PCP Physician Assistant; Visit Provider Physician Assistant
DX: D18.03 Hemangioma of intra-abdominal structures (principal)
CPT/HCPCS: 74160; Q9967

== ENCOUNTER → 2022-05-13 09:37 | Outpatient (CLI) | payer OTHER, BC, SELFPAY ==
--- NOTE | 2022-05-13 09:39 | MM_ITS ---
PROCEDURE INFORMATION: Exam: MG Bilateral Screening 3D Mammography Exam date and time: 05/13/2022 9:38 AM Age: 56 years old Clinical indication: Screening. Her maternal grandmother had breast cancer. TECHNIQUE: Imaging protocol: Bilateral Screening tomosynthesis and 2D mammography including computer-aided detection (CAD) when performed. COMPARISON: 1. MG MM DIG MAMM DX UNILAT RT CAD 08/30/2020 1:32 PM 2. MG MM DIG SCREENING MAMM BI W/CAD 11/07/2019 3:35 PM 3. MG DMSB DIG MAMM-SCREEN ALEXADNER W/CAD 03/19/2017 9:53 AM 4. MG DMDXUL DIG MAMM-DX UNI-LT 06/30/2013 12:58 PM FINDINGS: MAMMOGRAPHY: Breast composition: There are scattered areas of fibroglandular density. Mass: None. Architectural distortion: Stable diffuse bilateral architectural distortion with history of reduction mammoplasty. Calcifications: No suspicious calcifications. Asymmetric density: None. Skin thickening: None. Axillary adenopathy: None. IMPRESSION: No mammographic evidence of malignancy. Annual screening is recommended unless otherwise clinically indicated. ASSESSMENT: BI-RADS Category 2: Benign
== END ==
PROVIDERS: PCP Physician Assistant; Visit Provider Physician Assistant
DX: Z12.31 Encounter for screening mammogram for malignant neoplasm of breast (principal); Z80.3 Family history of malignant neoplasm of breast
CPT/HCPCS: 77063; 77067

== ENCOUNTER → 2022-08-04 10:20 | Outpatient (CLI) | payer OTHER, BC, SELFPAY ==
[2022-08-04 16:08] LABS: Basophils # 0.1 K/mm3 (0-0.2); Basophils % 1.2 % (0.1-2.0); Eosinophils # 0.1 K/mm3 (0.0-0.4); Eosinophils % 1.7 % (0.1-12.0); Hematocrit 45.6 % (37.0-47.0); Hemoglobin 14.5 g/dL (12.2-16.2); Lymphocytes # 1.8 K/mm3 (0.7-4.5); Lymphocytes % 32.3 % (10-50); Mean Corpuscular HGB Conc 31.9 g/dL (31.8-35.4); Mean Corpuscular Hemoglobin 30.2 pg (27.0-31.2); Mean Corpuscular Volume 94.7 fl (81-99); Mean Platelet Volume 9.3 fl (7.4-10.4); Monocytes # 0.4 K/mm3 (0.1-1.0); Monocytes % 7.1 % (1.7-9.3); Neutrophils # 3.2 K/mm3 (1.8-7.8); Neutrophils % 57.7 % (37.0-80.0); Platelet Count 315 K/mm3 (142-424); Red Blood Count 4.81 M/mm3 (4.20-5.40); Red Cell Distribution Width 12.7 % (11.5-17.5); White Blood Count 5.6 K/mm3 (4.8-10.8)
[2022-08-04 16:15] LABS: Alanine Aminotransferase 26 U/L (12-78); Albumin Level 4.8 g/dl (3.5-5.0); Albumin/Globulin Ratio 1.6 (1.1-1.8); Alkaline Phosphatase 52 U/L (38-126); Anion Gap 8.7 mEq/L (5-15); Aspartate Amino Transferase 28 U/L (14-36); Bilirubin,Total 0.5 mg/dl (0.2-1.3); Blood Urea Nitrogen 17 mg/dl (7-17); Calcium 9.2 mg/dl (8.4-10.2); Carbon Dioxide 31 mmol/L (22.0-30.0); Chloride 103 mmol/L (98-107); Cholesterol 264 mg/dl (140-200); Estimated Glomerular Filt Rate 74 ml/min (>60); GFR (African American) 90 ML/MIN (>60); Glucose 105 mg/dl (74-100); HDL Cholesterol 66 mg/dl (40-60); Potassium 4.7 mmoL/L (3.5-5.1); Sodium 138 mmol/L (136-145); Total Protein,Serum 7.8 g/dl (6.3-8.2); Triglycerides 143 mg/dl (30-150); VLDL Cholesterol 29 mg/dL (0-40)
[2022-08-04 16:26] LABS: Direct LDL Cholesterol 134.98 mg/dL (100-129)
[2022-08-04 16:32] LABS: 25-OH Vitamin D, Total 44.5 ng/mL (30-100)
[2022-08-04 16:33] LABS: Free T4 (Free Thyroxine) 2.03 ng/dl (0.78-2.19)
[2022-08-04 16:46] LABS: Thyroid Stimulating Hormone 0.09 uIU/mL (0.465-4.68)
== END ==
PROVIDERS: PCP Emergency Medicine; Visit Provider Emergency Medicine
DX: E03.9 Hypothyroidism, unspecified (principal); E55.9 Vitamin D deficiency, unspecified; E78.5 Hyperlipidemia, unspecified
CPT/HCPCS: 80053; 80061; 82306; 84439; 84443; 85025

== ENCOUNTER → 2023-02-25 01:23 | Outpatient (CLI) | payer OTHER, SELFPAY ==
[2023-02-25 20:55] LABS: Amphetamine/Metha Screen,Urine Positive ng/ml (<1000)
[2023-02-25 20:56] LABS: Barbiturates Screen,Urine Negative ng/ml (<200)
[2023-02-25 20:57] LABS: Benzodiazepines Screen,Urine Negative ng/ml (<200); Cannabinoid Screen,Urine Negative ng/ml (<50)
[2023-02-25 20:58] LABS: Cocaine Screen,Urine Negative ng/ml (<300); Methadone Screen,Urine Negative ng/ml (<300)
[2023-02-25 20:59] LABS: Opiate Screen,Urine Negative ng/ml (<300)
[2023-02-25 21:00] LABS: Phencyclidine Screen,Urine Negative ng/ml (<25)
== END ==
LOC: LAB.DROPOF 02-26 09:22
PROVIDERS: PCP Physician Assistant; Visit Provider Physician Assistant
DX: F90.9 Attention-deficit hyperactivity disorder, unspecified type (principal); R63.5 Abnormal weight gain; Z68.30 Body mass index [BMI] 30.0-30.9, adult
CPT/HCPCS: 80305

== ENCOUNTER 2023-10-14 08:38 | Outpatient (CLI) | payer OTHER, SELFPAY ==
[2023-10-14 09:43] LABS: Basophils # 0.1 K/mm3 (0-0.2); Basophils % 1.7 % (0.1-2.0); Eosinophils # 0.1 K/mm3 (0.0-0.4); Hematocrit 44.1 % (37.0-47.0); Hemoglobin 14.2 g/dL (12.2-16.2); Lymphocytes # 1.9 K/mm3 (0.7-4.5); Lymphocytes % 37.1 % (10-50); Mean Corpuscular HGB Conc 32.2 g/dL (31.8-35.4); Mean Corpuscular Hemoglobin 30.3 pg (27.0-31.2); Mean Platelet Volume 8.8 fl (7.4-10.4); Monocytes # 0.4 K/mm3 (0.1-1.0); Monocytes % 7.7 % (1.7-9.3); Neutrophils # 2.7 K/mm3 (1.8-7.8); Neutrophils % 52.4 % (37.0-80.0); Platelet Count 280 K/mm3 (142-424); Red Blood Count 4.69 M/mm3 (4.20-5.40); White Blood Count 5.1 K/mm3 (4.8-10.8)
[2023-10-14 10:16] LABS: Alanine Aminotransferase 30 U/L (12-78); Albumin Level 4.1 g/dl (3.5-5.0); Albumin/Globulin Ratio 1.6 (1.1-1.8); Alkaline Phosphatase 50 U/L (38-126); Anion Gap 11.1 mEq/L (5-15); Aspartate Amino Transferase 32 U/L (14-36); Bilirubin,Total 0.6 mg/dl (0.2-1.3); Blood Urea Nitrogen 13 mg/dl (7-17); Calcium 9.1 mg/dl (8.4-10.2); Carbon Dioxide 33 mmol/L (22.0-30.0); Chloride 101 mmol/L (98-107); Chol/HDL Ratio 2.9 (1-3.5); Cholesterol 269 mg/dl (140-200); Estimated Glomerular Filt Rate 87 ml/min (>60); GFR (African American) 105 ML/MIN (>60); Globulin 2.5 g/dL (1.3-3.2); Glucose 96 mg/dl (74-100); HDL Cholesterol 92 mg/dl (40-60); Potassium 4.1 mmoL/L (3.5-5.1); Sodium 141 mmol/L (136-145); Total Protein,Serum 6.6 g/dl (6.3-8.2); Triglycerides 100 mg/dl (30-150); VLDL Cholesterol 20 mg/dL (0-40)
[2023-10-14 10:27] LABS: Direct LDL Cholesterol 128.91 mg/dL (100-129)
[2023-10-14 10:33] LABS: 25-OH Vitamin D, Total 51.8 ng/mL (30-100)
[2023-10-14 10:48] LABS: Hemoglobin A1C 5.7 % (4.0-6.0); Thyroid Stimulating Hormone 0.32 uIU/mL (0.465-4.68)
[2023-10-15 08:19] LABS: Estradiol <5.0 pg/mL (.); FSH 97.9 mIU/mL (.)
== END 2023-10-14 23:59 | disposition home or self-care (01) ==
LOC: LAB 08:39
PROVIDERS: PCP Physician Assistant; Visit Provider Obstetrics & Gynecology
DX: E66.3 Overweight (principal); Z68.29 Body mass index [BMI] 29.0-29.9, adult; Z79.899 Other long term (current) drug therapy
CPT/HCPCS: 80053; 80061; 82306; 82533; 82670; 83001; 83036; 83525; 84443; 85025

== ENCOUNTER 2024-08-08 09:15 | Outpatient (CLI) | payer OTHER, SELFPAY ==
--- NOTE | 2024-08-08 09:18 | XR_ITS ---
FINAL REPORT CLINICAL HISTORY: urolithiasis FINDINGS: SINGLE VIEW ABDOMEN A single view of the abdomen was obtained. There is a nonobstructive bowel gas pattern. There are no abnormally dilated loops of small bowel. There is a lower pole left renal stone measuring 3 mm. There is no radiopaque right renal stone. Pelvic calcifications are likely phleboliths. Patient is status postcholecystectomy. IMPRESSION: Left nephrolithiasis. Reviewed, Interpreted and Dictated by Carlos Camacho MD Transcribed by Neha Kyle Authenticated and [facility]
[2024-08-08 18:41] LABS: Basophils # 0.1 K/mm3 (0-0.2); Basophils % 1.6 % (0.1-2.0); Eosinophils # 0.1 K/mm3 (0.0-0.4); Eosinophils % 1.2 % (0.1-12.0); Hematocrit 42.4 % (37.0-47.0); Hemoglobin 13.6 g/dL (12.2-16.2); Lymphocytes # 2.1 K/mm3 (0.7-4.5); Lymphocytes % 37.1 % (10-50); Mean Corpuscular HGB Conc 32.1 g/dL (31.8-35.4); Mean Corpuscular Hemoglobin 29.8 pg (27.0-31.2); Mean Corpuscular Volume 92.8 fl (81-99); Mean Platelet Volume 10.9 fl (7.4-10.4); Monocytes # 0.5 K/mm3 (0.1-1.0); Monocytes % 9.3 % (1.7-9.3); Neutrophils # 2.9 K/mm3 (1.8-7.8); Neutrophils % 50.6 % (37.0-80.0); Platelet Count 308 K/mm3 (142-424); Red Blood Count 4.57 M/mm3 (4.20-5.40); Red Cell Distribution Width 13.1 % (11.5-17.5); White Blood Count 5.7 K/mm3 (4.8-10.8)
[2024-08-08 20:30] LABS: Albumin Level 4.8 g/dl (3.5-5.0); Chloride 101 mmol/L (98-107); Potassium 4.5 mmoL/L (3.5-5.1); Sodium 137 mmol/L (136-145)
[2024-08-08 20:32] LABS: Blood Urea Nitrogen 12 mg/dl (7-17); Estimated Glomerular Filt Rate 74 ml/min (>60); GFR (African American) 89 ML/MIN (>60)
[2024-08-08 20:33] LABS: Alanine Aminotransferase 30 U/L (12-78); Alkaline Phosphatase 55 U/L (38-126); Anion Gap 12.5 mEq/L (5-15); Aspartate Amino Transferase 30 U/L (14-36); Bilirubin,Total 0.4 mg/dl (0.2-1.3); Calcium 8.9 mg/dl (8.4-10.2); Carbon Dioxide 28 mmol/L (22.0-30.0); Chol/HDL Ratio 4.4 (1-3.5); Cholesterol 285 mg/dl (140-200); Globulin 2.4 g/dL (1.3-3.2); Glucose 102 mg/dl (74-100); HDL Cholesterol 65 mg/dl (40-60); Total Protein,Serum 7.2 g/dl (6.3-8.2); Triglycerides 121 mg/dl (30-150); VLDL Cholesterol 24 mg/dL (0-40)
[2024-08-08 20:45] LABS: Direct LDL Cholesterol 172.11 mg/dL (100-129)
[2024-08-08 21:24] LABS: 25-OH Vitamin D, Total 37.4 ng/mL (30-100)
[2024-08-08 21:54] LABS: Vitamin B12 805 pg/mL (239-931)
== END 2024-08-08 23:59 | disposition home or self-care (01) ==
LOC: RAD 09:16
PROVIDERS: PCP Family Medicine; Visit Provider Family Medicine
DX: N20.0 Calculus of kidney (principal); E78.2 Mixed hyperlipidemia; E55.9 Vitamin D deficiency, unspecified; E03.9 Hypothyroidism, unspecified; E53.8 Deficiency of other specified B group vitamins
CPT/HCPCS: 74018; 80053; 80061; 82306; 82607; 84443; 85025

== ENCOUNTER 2024-08-10 10:38 | Outpatient (CLI) | payer OTHER, SELFPAY ==
--- NOTE | 2024-08-10 10:39 | CT_ITS ---
FINAL REPORT TECHNIQUE: Axial CT of the abdomen and pelvis, without and with IV contrast. This study was performed with techniques to keep radiation doses as low as reasonably achievable, (ALARA). Individualized dose reduction techniques using automated exposure control or adjustment of mA and/or kV according to the patient''s size were employed. CLINICAL HISTORY: RLQ abdominal pain, nephrolithiasis COMPARISON: 03/25/2022 FINDINGS: Abdomen: Lung bases are clear. Again seen is an enhancing lesion in the medial portion of the right hepatic lobe measuring up to 17 mm, previously measured 16 mm. On prior imaging this completely filled and on delayed imaging. Imaging characteristics are consistent with a benign hemangioma. Patient is status postcholecystectomy. The spleen, pancreas and adrenal glands are unremarkable. There are nonobstructing left renal stones. There is no renal mass or hydronephrosis. No bowel obstruction or fluid collection is seen. Pelvis: The appendix is normal. There is mild sigmoid diverticulosis. Pelvic bowel loops are otherwise unremarkable. No fluid collection or adenopathy is seen. Patient is status post hysterectomy. IMPRESSION: No acute findings. Stable liver mass consistent with hemangioma. Nonobstructing left renal stones. Reviewed, Interpreted and Dictated by Carlos Camacho MD Transcribed by Neha Kyle Authenticated and [facility]
[2024-08-10] MEDS: IOPAMIDOL-370 (76%);100ML BOTTLE 75 ML IV (11:03)
[2024-08-10] MEDS: SODIUM CHLORIDE 0.9% 10ML SYR (RAD ONLY) 10 ML IV (11:03)
== END 2024-08-10 23:59 | disposition home or self-care (01) ==
LOC: RAD 10:39
PROVIDERS: PCP Family Medicine; Visit Provider Family Medicine
DX: R10.31 Right lower quadrant pain (principal); R16.0 Hepatomegaly, not elsewhere classified; N28.1 Cyst of kidney, acquired; N20.0 Calculus of kidney
CPT/HCPCS: 74178; Q9967

== ENCOUNTER 2024-08-23 08:05 | Outpatient (CLI) | payer OTHER, SELFPAY ==
--- NOTE | 2024-08-23 08:30 | MM_ITS ---
PROCEDURE INFORMATION: Exam: MG Bilateral Screening 3D Mammography Exam date and time: 08/23/2024 8:26 AM Age: 58 years old Clinical indication: Screening examination TECHNIQUE: Imaging protocol: Bilateral Screening tomosynthesis and 2D mammography including computer-aided detection (CAD) when performed. COMPARISON: 1. MG MM DIG SCREENING MAMM BI W/CAD 05/13/2022 9:38 AM 2. MG MM DIG MAMM DX UNILAT RT CAD 08/30/2020 1:32 PM FINDINGS: MAMMOGRAPHY: Breast composition: The breasts are almost entirely fatty. Mass: None. Architectural distortion: None. Calcifications: No suspicious calcifications. Asymmetric density: None. Skin thickening: None. Axillary adenopathy: None. IMPRESSION: No mammographic evidence of malignancy. Annual screening is recommended unless otherwise clinically indicated. ASSESSMENT: BI-RADS Category 1: Negative.
== END 2024-08-23 23:59 | disposition home or self-care (01) ==
LOC: RAD 08:05
PROVIDERS: PCP Family Medicine; Visit Provider Family Medicine
DX: Z12.31 Encounter for screening mammogram for malignant neoplasm of breast (principal)
CPT/HCPCS: 77063; 77067

== ENCOUNTER 2024-09-23 09:18 | Outpatient (CLI) | payer OTHER, SELFPAY ==
[2024-09-23 19:45] LABS: Thyroid Stimulating Hormone < 0.02 uIU/mL (0.465-4.68)
== END 2024-09-23 23:59 | disposition home or self-care (01) ==
LOC: LAB.DROPOF 09-26 09:19
PROVIDERS: PCP Family Medicine; Visit Provider Family Medicine
DX: E03.9 Hypothyroidism, unspecified (principal)
CPT/HCPCS: 84443

== ENCOUNTER 2024-10-03 09:00 | Outpatient (CLI) | payer OTHER, SELFPAY ==
[2024-10-03 18:46] LABS: Anion Gap 10.2 mEq/L (5-15); Blood Urea Nitrogen 12 mg/dl (7-17); Calcium 9.1 mg/dl (8.4-10.2); Carbon Dioxide 29 mmol/L (22.0-30.0); Chloride 104 mmol/L (98-107); Estimated Glomerular Filt Rate 86 ml/min (>60); GFR (African American) 104 ML/MIN (>60); Glucose 112 mg/dl (74-100); Potassium 4.2 mmoL/L (3.5-5.1); Sodium 139 mmol/L (136-145)
[2024-10-05 12:06] LABS: Thyroid Stimulating Hormone < 0.02 uIU/mL (0.465-4.68)
== END 2024-10-03 23:59 | disposition home or self-care (01) ==
LOC: LAB.DROPOF 10-04 12:24
PROVIDERS: PCP Family Medicine; Visit Provider Family Medicine
DX: R60.0 Localized edema (principal); E05.90 Thyrotoxicosis, unspecified without thyrotoxic crisis or storm
CPT/HCPCS: 80048; 84443

== ENCOUNTER 2024-10-27 07:47 | Day surgery (SDC) | payer OTHER, SELFPAY ==
[2024-10-26 14:40] VITALS: BMI 28.5
[2024-10-27 08:42] VITALS: BP 126/74; PULSE 52; RESP 16; TEMP 36.2; O2SAT 99
[2024-10-27] MEDS: LACTATED RINGERS 1000ML 1,000 ML 50 ML IV (08:52)
--- NOTE | 2024-10-27 09:25 | EXP.ANES.CKL ---
[facility] Disclaimer: The information contained in this section may have been updated after the patient was seen, as this information can be updated by other users. Medical History Sore throat Pedal edema Insomnia Family history of colon cancer Thyroid cancer Colonic polyp Breast cancer screening by mammogram Liver mass, right lobe Renal cyst Nephrolithiasis Abnormal weight gain Dyspnea Abnormal electrocardiography Bradycardia Tachycardia Hx of supraventricular tachycardia Neuropathy Family history of breast cancer Attention Deficit Hyperactivity Disorder (ADHD) Ribs, multiple fractures Traumatic brain injury Thoracic back pain Hypothyroidism Surgical History History of thyroidectomy, total History of cholecystectomy History of pericardiectomy History of thoracic spinal fusion History of hysterectomy with bilateral oophorectomy Family History Other No significant family history Social History Smoking Status: Never smoker alcohol intake: never substance use type: denies use current occupational status: employed Travel in the last 8 weeks?: None household members: spouse housing: house current occupation: [employer] caffeine: Yes Have you lived/traveled outside US in past 30 days?: No Contact w/someone who lives/traveled outside US past 30 days?: No Exposure to someone with infectious disease in past 14 days?: No Do you have a fever (greater than 100.4 F or 38 C)?: No Have you tested positive for COVID-19?: No Exposed to someone with COVID-19 in past 14 days?: No Do you have a sore throat?: No Do you have a cough?: No Do you have any weakness?: No Are you experiencing any nausea/vomitting?: No Do you have any diarrhea?: No Are you experiencing any unusual bleeding?: No Do you have any muscle aches/pain?: No Do you have any abdominal pain?: No Are you experiencing loss of taste or smell?: No [facility] Anesthesia Checklist Patient Identification Patient Identification: Verbal (Name & ) Structural Data Admitted From: Home Planned Operative Procedure/s: egd Consent for Planned Operative Procedure(s) Verified: Yes NPO Status Verified Time NPO: 00:00 Additional verifications Anesthesia Reactions: Yes (nausea) Hx Blood Transfusions: No Blood Transfusion Reaction: No Airway Assessment Mallampati Score:: Class II C-Spine Mobility Assessed: Yes TMJ Mobility Assessed: Yes Dentition: Good Dentition Neurological Assessment Level of Consciousness: Awake, Alert and Appropriate Anesthesia Plan Anesthesia Risk discussed: Yes Anesthesia Plan: Verified ASA Class: II Anesthesia Type: MAC
--- NOTE | 2024-10-27 09:58 | P.HP_ITS ---
History of Present Illness *Admission Date: 10/27/24 *Reason for visit:: heartburn and reflux-longstanding GERD *History of present illness: Mrs. Jha is a 58-year-old female who is here for diagnostic EGD secondary to chronic intractable GERD. The examination is deemed medically necessary for diagnostic EGD. The patient has been seen, interviewed and examined prior to the procedure by both myself and the anesthesia provider. [facility] Disclaimer: The information contained in this section may have been updated after the patient was seen, as this information can be updated by other users. Medical History Sore throat Pedal edema Insomnia Family history of colon cancer Thyroid cancer Colonic polyp Breast cancer screening by mammogram Liver mass, right lobe Renal cyst Nephrolithiasis Abnormal weight gain Dyspnea Abnormal electrocardiography Bradycardia Tachycardia Hx of supraventricular tachycardia Neuropathy Family history of breast cancer Attention Deficit Hyperactivity Disorder (ADHD) Ribs, multiple fractures Traumatic brain injury Thoracic back pain Hypothyroidism Surgical History History of thyroidectomy, total History of cholecystectomy History of pericardiectomy History of thoracic spinal fusion History of hysterectomy with bilateral oophorectomy Family History Other No significant family history Social History Smoking Status: Never smoker alcohol intake: never substance use type: denies use current occupational status: employed Travel in the last 8 weeks?: None household members: spouse housing: house current occupation: [employer] caffeine: Yes Have you lived/traveled outside US in past 30 days?: No Contact w/someone who lives/traveled outside US past 30 days?: No Exposure to someone with infectious disease in past 14 days?: No Do you have a fever (greater than 100.4 F or 38 C)?: No Have you tested positive for COVID-19?: No Exposed to someone with COVID-19 in past 14 days?: No Do you have a sore throat?: No Do you have a cough?: No Do you have any weakness?: No Are you experiencing any nausea/vomitting?: No Do you have any diarrhea?: No Are you experiencing any unusual bleeding?: No Do you have any muscle aches/pain?: No Do you have any abdominal pain?: No Are you experiencing loss of taste or smell?: No Other Medical History Have you received the Flu Vaccine for this season: No Have you received the Pneumonia Vaccine: No Review of Systems Review of Systems Review of systems (narrative): Negative *Cardiovascular Comments: Negative *Gastrointestinal Comments: Negative *Genitourinary Comments: Negative *Musculoskeletal Comments: Negative *Neurologic Comments: Negative Meds Home Medications and Allergies Home Medications ?Medication ?Instructions ?Recorded ?Confirmed ?Type cholecalciferol (vitamin D3) 1,250 See Rx Instructions .Route 04/20/23 10/27/24 Rx mcg (50,000 unit) capsule .COMPLEX Supplement #14 caps phenazopyridine 200 mg tablet 200 mg PO TID PRN pain #20 tabs 12/07/23 10/27/24 Rx (Pyridium) cholecalciferol (vitamin D3) 25 See Rx Instructions .Route 06/10/24 10/27/24 Rx mcg (1,000 unit) capsule .COMPLEX #90 caps sucralfate 1 gram tablet See Rx Instructions .Route 08/04/24 10/27/24 Rx .COMPLEX #120 tabs hydrocodone 5 mg-acetaminophen 325 1 tab PO Q6H PRN pain #30 tabs 08/08/24 10/27/24 Rx mg tablet promethazine 12.5 mg tablet 12.5 mg PO TID PRN nausea and 08/24/24 10/27/24 Rx vomiting #30 tabs lisdexamfetamine 40 mg capsule 40 mg PO DAILY #30 caps 10/12/24 10/27/24 Rx (Vyvanse) pregabalin 25 mg capsule 25 mg PO BID Pain #60 caps 10/12/24 10/27/24 Rx vonoprazan 20 mg tablet (Voquezna) 20 mg PO DAILY 8 weeks #56 tabs 10/21/24 10/27/24 Rx furosemide 20 mg tablet (Lasix) 20 mg PO NEEDED PRN Edema 10/26/24 10/27/24 History hydroxychloroquine 200 mg tablet 200 mg PO BID 10/26/24 10/27/24 History (Plaquenil) tamsulosin 0.4 mg capsule (Flomax) 0.4 mg PO NEEDED PRN Kidney 10/26/24 10/27/24 History Stones cyclobenzaprine 10 mg tablet 10 mg PO HS PRN Insomnia 10/27/24 10/27/24 History levothyroxine 200 mcg tablet 200 mcg PO BID 10/27/24 10/27/24 History levothyroxine 25 mcg tablet 25 mcg PO BID 10/27/24 10/27/24 History ondansetron 4 mg disintegrating 4 mg PO Q8H PRN Nausea 10/27/24 10/27/24 History tablet oxybutynin chloride 10 mg 10 mg PO DAILY PRN Bladder Spasms 10/27/24 10/27/24 History tablet,extended release 24 hr New Prescriptions to Start Prescriptions: Allergies Allergy/AdvReac Type Severity Reaction Status Date / Time codeine AdvReac Mild Vomiting Verified 10/27/24 08:29 NSAIDS (Non-Steroidal AdvReac Unknown SEVERE Verified 10/27/24 08:29 Anti-Inflamma (NSAIDS ULCERS (NON-STEROIDAL ANTI-INFLAMMA) Exam Data for Last 24 hours Vital signs and Labs for Last 24 Hours: Temp Pulse Resp BP Pulse Ox O2 Del Method 97.2 F L 52 L 16 126/74 99 Room Air 10/27/24 08:42 10/27/24 08:42 10/27/24 08:42 10/27/24 08:42 10/27/24 08:42 10/27/24 08:42 I & O for Last 24 hours: Intake & Output 10/24/24 10/25/24 10/26/24 10/27/24 23:59 23:59 23:59 23:59 Weight 177 lb *Routine HEENT Exam Head: Present normocephalic Eye: Present EOMI and PERRL ENT: Present mucous membranes moist *Routine Neck Exam Neck: Present supple *Routine Respiratory Exam Respiratory: Present CTA bilaterally *Routine Cardiovascular Exam Cardiovascular: Present RRR *Routine Abdominal Exam Abdominal: Present soft and normoactive bowel sounds; Absent tenderness *Routine Rectal Exam Rectal:: deferred *Routine Genitalia Exam Genitalia:: deferred *Routine Extremities Exam Extremities: Absent cyanosis, clubbing or edema *Routine Skin Exam Skin: Present warm; Absent rash *Routine Neurological Exam Neurological: Present alert and oriented X3 Assessment and Plan *Assessment and plan (1) Heartburn: Status: Acute Category: Medical Code(s): R12 - Heartburn (2) GERD (gastroesophageal reflux disease): Status: Acute Qualifiers: Esophagitis presence: esophagitis presence not specified Qualified Code(s): K21.9 - Gastro-esophageal reflux disease without esophagitis Category: Medical Code(s): K21.9 - Gastro-esophageal reflux disease without esophagitis (3) Bloating: Status: Acute Category: Medical Code(s): R14.0 - Abdominal distension (gaseous) (4) Constipation: Status: Acute Category: Medical Code(s): K59.00 - Constipation, unspecified Plan A/P: 1. Chronic intractable GERD with heartburn despite PPI therapy is the preprocedural diagnosis. The patient also has a lot of bloating. The patient will be anesthetized/sedated using MAC sedation. The patient has been seen and examined. Cardiac and lung assessment prior to the examination is stable. Proceed with planned diagnostic EGD..
--- NOTE | 2024-10-27 10:17 | P.PCN_ITS ---
[facility] Procedure Note Date: 10/27/24 Procedure Note:: Upper Endoscopy Procedure Report: Esophagogastroduodenoscopy with cold biopsies Endoscopost: Giuliano Francis II, MD Referring Physician: Sebas Michelle MD Date of Procedure: October 27, 2024 Equipment: Olympus GIF 190 standard upper endoscope Sedation: MAC sedation Indications: Mrs. Jha is a 58-year-old female with chronic longstanding GERD. She has had multiple upper endoscopies over the years. Her endoscopy in February 2020 (Jabier Costa MD) did show reflux esophagitis. She was placed on Dexilant but this was cost prohibitive. She has failed Tums, Pepto-Bismol, sucralfate and other PPIs (omeprazole, Nexium and pantoprazole). The patient was recently started on Voquezna and has had complete resolution of her symptoms. She reports no heartburn, reflux, bloating, gassiness, belching, nausea or dysphagia. The patient did have a colonoscopy in February 2020 (Jabier Costa) and had 6 polyps (tubular adenomas x 6) removed. She is overdue for repeat surveillance colonoscopy. Her maternal grandfather and maternal aunt had colon cancer. Procedure: Prior to the procedure, a history and physical exam was performed, and patient's medications and allergies were reviewed. The risks, benefits and alternatives of the sedation and procedure were discussed with the patient. All questions were answered and informed consent was obtained. The patient was brought to the procedure room. Patient identification and proposed procedure were verified by the physician and the nurse. The patient was placed in a left lateral decubitus position and the scope was passed under direct vision. Throughout the procedure, the patient's blood pressure, pulse, and oxygen saturations were monitored continuously. The upper GI endoscopy was accomplished without difficulty. The patient tolerated the procedure well. Findings: The scope was passed directly into the upper esophagus and advanced to the fourth portion of duodenum and proximal jejunum. Cold biopsies were taken from the proximal jejunum x 4 for the disaccharidase assay. The proximal jejunum, post bulbar duodenum, ampulla and duodenal bulb were normal with normal mucosa and conniventes. There was very mild duodenal lymphoid stasis. The scope was withdrawn through a normal duodenal bulb and pylorus into the stomach. There was bile reflux with mild antral gastropathy. The body and fundus of the stomach were normal. Upon retroflexion there was a 2 cm hiatal hernia. The scope was then withdrawn into the esophagus. There was no evidence of reflux esophagitis or Ellis's. There was a serrated Z-line and biopsies were taken from the GE junction. The remainder of the esophageal mucosa was normal. Impression: 1. Nonerosive GERD with small 2 cm hiatal hernia 2. Bile reflux with mild antral linear reactive gastropathy Plan: I will follow-up the biopsies. The patient has had complete resolution of symptoms on Voquezna which I will continue. I would recommend scheduling surveillance colonoscopy because of her history of adenomatous polyps and family history.
[2024-10-27 10:30] VITALS: BP 107/62; PULSE 85; RESP 16; TEMP 36.9; O2SAT 97
[2024-10-27 10:40] VITALS: BP 107/68; PULSE 79; RESP 16; TEMP 36.9; O2SAT 97
[2024-10-27 10:50] VITALS: BP 107/62; PULSE 85; RESP 16; TEMP 36.9; O2SAT 97
[2024-10-27 11:00] VITALS: BP 110/74; PULSE 68; RESP 16; TEMP 36.9; O2SAT 98
[2024-11-02 17:21] LABS: Disclaimer Notes (.); Interpretation Notes (.); Lactase 30.55 (>/= 14.0); Maltase 335.93 (>/= 110.0); Palatinase 30.36 (>/= 8.5); Reference Notes (.); Sucrase 105.89 (>/= 25.0)
== END 2024-10-27 11:00 | disposition home or self-care (01) ==
PROVIDERS: PCP Family Medicine; Visit Provider Internal Medicine Gastroenterology
PROC: 0DJ08ZZ Inspection of Upper Intestinal Tract, Via Natural or Artificial Opening Endoscopic (ICD-10-PCS; CPT 43239; principal; 2024-10-27 09:30)
DX: R12 Heartburn (principal); K21.9 Gastro-esophageal reflux disease without esophagitis; Z80.0 Family history of malignant neoplasm of digestive organs; K44.9 Diaphragmatic hernia without obstruction or gangrene; K31.9 Disease of stomach and duodenum, unspecified
CPT/HCPCS: 43239; 82657; J7120

== ENCOUNTER 2024-11-09 08:41 | Outpatient (CLI) | payer OTHER, SELFPAY ==
[2024-11-09 19:05] LABS: Thyroid Stimulating Hormone < 0.02 uIU/mL (0.465-4.68)
== END 2024-11-09 23:59 | disposition home or self-care (01) ==
LOC: LAB.DROPOF 11-10 10:13
PROVIDERS: PCP Family Medicine; Visit Provider Family Medicine
DX: C73 Malignant neoplasm of thyroid gland (principal)
CPT/HCPCS: 84443

== ENCOUNTER 2025-01-19 08:14 | Day surgery (SDC) | payer OTHER, SELFPAY ==
[2025-01-17 14:55] VITALS: BMI 29.0
--- NOTE | 2025-01-18 12:43 | EXP.HP ---
History of Present Illness *Admission Date: 01/19/25 *Reason for visit:: Personal history of adenomatous colon polyps and family history of colon ca *History of present illness: Mrs. Jha is a 59-year-old female who is here for screening/surveillance colonoscopy. The patient did have a colonoscopy in February 2020 (Jabier Costa MD) had 6 polyps (tubular adenomas x 6) removed. Her maternal grandfather and maternal aunt had colon cancer. The examination is deemed medically necessary for screening/surveillance colonoscopy. The patient has been seen, interviewed and examined prior to the procedure by both myself and the anesthesia provider. [facility] Disclaimer: The information contained in this section may have been updated after the patient was seen, as this information can be updated by other users. Medical History Sore throat Pedal edema Insomnia Family history of colon cancer Thyroid cancer Colonic polyp Breast cancer screening by mammogram Liver mass, right lobe Renal cyst Nephrolithiasis Abnormal weight gain Dyspnea Abnormal electrocardiography Bradycardia Tachycardia Hx of supraventricular tachycardia Neuropathy Family history of breast cancer Attention Deficit Hyperactivity Disorder (ADHD) Ribs, multiple fractures Traumatic brain injury Thoracic back pain Hypothyroidism Surgical History History of thyroidectomy, total History of cholecystectomy History of pericardiectomy History of thoracic spinal fusion History of hysterectomy with bilateral oophorectomy Family History Other No significant family history Social History (Updated 01/19/25 @ 09:20 by Sydnee Forrester RN) Smoking Status: Never smoker alcohol intake: never substance use type: denies use current occupational status: employed Travel in the last 8 weeks?: None household members: spouse housing: house current occupation: [email or web address] caffeine: Yes Have you lived/traveled outside US in past 30 days?: No Contact w/someone who lives/traveled outside US past 30 days?: No Exposure to someone with infectious disease in past 14 days?: No Do you have a fever (greater than 100.4 F or 38 C)?: No Have you tested positive for COVID-19?: No Exposed to someone with COVID-19 in past 14 days?: No Do you have a sore throat?: No Do you have a cough?: No Do you have any weakness?: No Are you experiencing any nausea/vomitting?: No Do you have any diarrhea?: No Are you experiencing any unusual bleeding?: No Do you have any muscle aches/pain?: No Do you have any abdominal pain?: No Are you experiencing loss of taste or smell?: No Other Medical History Have you received the Flu Vaccine for this season: No Have you received the Pneumonia Vaccine: No Review of Systems Review of Systems Review of systems (narrative): Negative *Cardiovascular Comments: Negative *Gastrointestinal Comments: Negative *Genitourinary Comments: Negative *Musculoskeletal Comments: Negative *Neurologic Comments: Negative Meds Home Medications and Allergies Home Medications ?Medication ?Instructions ?Recorded ?Confirmed ?Type cholecalciferol (vitamin D3) 1,250 See Rx Instructions .Route 04/20/23 01/19/25 Rx mcg (50,000 unit) capsule .COMPLEX Supplement #14 caps phenazopyridine 200 mg tablet 200 mg PO TID PRN pain #20 tabs 12/07/23 01/19/25 Rx (Pyridium) cholecalciferol (vitamin D3) 25 See Rx Instructions .Route 06/10/24 01/19/25 Rx mcg (1,000 unit) capsule .COMPLEX #90 caps hydrocodone 5 mg-acetaminophen 325 1 tab PO Q6H PRN pain #30 tabs 08/08/24 01/19/25 Rx mg tablet promethazine 12.5 mg tablet 12.5 mg PO TID PRN nausea and 08/24/24 01/19/25 Rx vomiting #30 tabs lisdexamfetamine 40 mg capsule 40 mg PO DAILY #30 caps 10/12/24 01/19/25 Rx (Vyvanse) pregabalin 25 mg capsule 25 mg PO BID Pain #60 caps 10/12/24 01/19/25 Rx furosemide 20 mg tablet (Lasix) 20 mg PO NEEDED PRN Edema 10/26/24 01/19/25 History hydroxychloroquine 200 mg tablet 200 mg PO BID 10/26/24 01/19/25 History (Plaquenil) tamsulosin 0.4 mg capsule (Flomax) 0.4 mg PO NEEDED PRN Kidney 10/26/24 01/19/25 History Stones cyclobenzaprine 10 mg tablet 10 mg PO HS PRN Insomnia 10/27/24 01/19/25 History ondansetron 4 mg disintegrating 4 mg PO Q8H PRN Nausea 10/27/24 01/19/25 History tablet oxybutynin chloride 10 mg 10 mg PO DAILY PRN Bladder Spasms 10/27/24 01/19/25 History tablet,extended release 24 hr levothyroxine 200 mcg tablet 200 mcg PO DAILY #90 tabs 11/10/24 01/19/25 Rx ondansetron HCl 4 mg tablet 4 mg PO Q6H 30 days #120 tabs 12/02/24 01/19/25 Rx semaglutide (weight loss) 0.25 0.25 mg (0.5 mL) SQ WEEKLY #2 mL 12/19/24 01/19/25 Rx mg/0.5 mL subcutaneous pen injector ([employer]) vonoprazan 20 mg tablet (Voquezna) 20 mg PO DAILY 8 weeks #56 tabs 12/26/24 01/19/25 Rx New Prescriptions to Start Prescriptions: Allergies Allergy/AdvReac Type Severity Reaction Status Date / Time codeine AdvReac Mild Vomiting Verified 01/19/25 09:24 NSAIDS (Non-Steroidal AdvReac Unknown SEVERE Verified 01/19/25 09:24 Anti-Inflamma (NSAIDS ULCERS (NON-STEROIDAL ANTI-INFLAMMA) Exam Data for Last 24 hours I & O for Last 24 hours: Intake & Output 01/15/25 01/16/25 01/17/25 01/18/25 23:59 23:59 23:59 23:59 Weight 180 lb *Routine HEENT Exam Head: Present normocephalic Eye: Present EOMI and PERRL ENT: Present mucous membranes moist *Routine Neck Exam Neck: Present supple *Routine Respiratory Exam Respiratory: Present CTA bilaterally *Routine Cardiovascular Exam Cardiovascular: Present RRR *Routine Abdominal Exam Abdominal: Present soft and normoactive bowel sounds; Absent tenderness *Routine Rectal Exam Rectal:: deferred *Routine Genitalia Exam Genitalia:: deferred *Routine Extremities Exam Extremities: Absent cyanosis, clubbing or edema *Routine Skin Exam Skin: Present warm; Absent rash *Routine Neurological Exam Neurological: Present alert and oriented X3 Assessment and Plan *Assessment and plan (1) Personal history of adenomatous and serrated colon polyps: Status: Acute Category: Medical Code(s): Z86.0101 - Personal history of adenomatous and serrated colon polyps (2) Family history of colon cancer: Status: Acute Category: Medical Code(s): Z80.0 - Family history of malignant neoplasm of digestive organs Plan A/P: 1. Personal history of adenomatous colon polyps and family history of colon cancer is the preprocedural diagnosis. The patient will be anesthetized/sedated using MAC sedation. The patient has been seen and examined. Cardiac and lung assessment prior to the examination is stable. Proceed with planned screening/surveillance colonoscopy.
[2025-01-19 09:10] VITALS: BP 102/66; PULSE 68; RESP 18; TEMP 36.1; O2SAT 98; BMI 29.0
[2025-01-19] MEDS: LACTATED RINGERS 1000ML 1,000 ML 50 ML IV (09:23)
--- NOTE | 2025-01-19 09:45 | P.PNANES_ITS ---
[facility] Disclaimer: The information contained in this section may have been updated after the patient was seen, as this information can be updated by other users. Medical History Sore throat Pedal edema Insomnia Family history of colon cancer Thyroid cancer Colonic polyp Breast cancer screening by mammogram Liver mass, right lobe Renal cyst Nephrolithiasis Abnormal weight gain Dyspnea Abnormal electrocardiography Bradycardia Tachycardia Hx of supraventricular tachycardia Neuropathy Family history of breast cancer Attention Deficit Hyperactivity Disorder (ADHD) Ribs, multiple fractures Traumatic brain injury Thoracic back pain Hypothyroidism Surgical History History of thyroidectomy, total History of cholecystectomy History of pericardiectomy History of thoracic spinal fusion History of hysterectomy with bilateral oophorectomy Family History Other No significant family history Social History (Updated 01/19/25 @ 09:20 by Sydnee Forrester RN) Smoking Status: Never smoker alcohol intake: never substance use type: denies use current occupational status: employed Travel in the last 8 weeks?: None household members: spouse housing: house current occupation: [employer] caffeine: Yes Have you lived/traveled outside [place] in past 30 days?: No Contact w/someone who lives/traveled outside US past 30 days?: No Exposure to someone with infectious disease in past 14 days?: No Do you have a fever (greater than 100.4 F or 38 C)?: No Have you tested positive for COVID-19?: No Exposed to someone with COVID-19 in past 14 days?: No Do you have a sore throat?: No Do you have a cough?: No Do you have any weakness?: No Are you experiencing any nausea/vomitting?: No Do you have any diarrhea?: No Are you experiencing any unusual bleeding?: No Do you have any muscle aches/pain?: No Do you have any abdominal pain?: No Are you experiencing loss of taste or smell?: No [facility] Anesthesia Checklist Patient Identification Patient Identification: Arm Band Structural Data Admitted From: Home Planned Operative Procedure/s: Colonoscopy Consent for Planned Operative Procedure(s) Verified: Yes Verified Documents: Surgical Consent and History and Physical NPO Status Verified Time NPO: 00:00 Additional verifications Anesthesia Reactions: Yes (nausea) Hx Blood Transfusions: No Blood Transfusion Reaction: No Airway Assessment Mallampati Score:: Class II C-Spine Mobility Assessed: Yes TMJ Mobility Assessed: Yes Dentition: Good Dentition Neurological Assessment Level of Consciousness: Awake, Alert and Appropriate Anesthesia Plan Anesthesia Risk discussed: Yes Anesthesia Plan: Verified ASA Class: II Anesthesia Type: MAC
--- NOTE | 2025-01-19 10:03 | HMH.PROCNOTE ---
[facility] Procedure Note Date: 01/19/25 Time: 10:28 Procedure Note:: Colonoscopy Procedure Report: Colonoscopy with cold snare polypectomy Endoscopist: Giuliano Francis II, MD Referring physician: Sebas Michelle MD Date of Procedure: January 19, 2025 Equipment: Olympus [id number] adult colonoscope Sedation: MAC sedation Indication: Mrs. Jha is a 59-year-old female who is here for screening/surveillance colonoscopy. The patient did have a colonoscopy in February 2020 (Jabier Costa MD) had 6 polyps (tubular adenomas x 6) removed. Her maternal grandfather and maternal aunt had colon cancer. The patient reports no abdominal pain, weight loss, change in her bowel habits or rectal bleeding. The patient does have chronic GERD which is now well-controlled with Voquezna. Procedure: Prior to the procedure, a history and physical exam was performed, and patient's medications and allergies were reviewed. The risks, benefits and alternatives of the sedation and procedure were discussed with the patient. All questions were answered and informed consent was obtained. The patient was brought to the procedure room. Patient identification and proposed procedure were verified by the physician and the nurse. The patient was placed in a left lateral decubitus position and the scope was passed under direct vision. Throughout the procedure, the patient's blood pressure, pulse, and oxygen saturations were monitored continuously. The colonoscopy was accomplished without difficulty. The patient tolerated the procedure well. Findings: On digital rectal examination there was normal rectal tone. There were no external hemorrhoids. The colonoscope was introduced through the anal canal to the rectum and advanced to the cecum. The ileocecal valve and appendiceal orifice were identified. The scope was advanced a short distance into the ileum which appeared grossly normal. The scope was then withdrawn into the colon. There were 3 diminutive polyps (ascending x 2 (3 and 3 mm) and descending x 1 (3 mm)). These were all removed via cold snare polypectomy. The remaining cecum, ascending and transverse colon and mucosa were grossly normal. There were a few scattered diverticuli throughout the descending and sigmoid colon (LEFT colon). The rectum itself was normal. Upon retroflexion within the rectum there were grade 1-2 internal hemorrhoids. The preparation was excellent throughout with Laporte Preparation Score of 9. The cecal time was 12 minutes. Impression: 1. Diminutive colonic polyps x 3 2. Mild left-sided diverticulosis 3. Grade 1-2 internal hemorrhoids Plan: I will follow-up the polyp histology and recommend repeat surveillance colonoscopy again in 5 to 7 years based upon the pathology. I would encourage psyllium fiber supplementation on a maintenance basis.
[2025-01-19 10:31] VITALS: BP 109/65; PULSE 75; RESP 18; TEMP 36.4; O2SAT 93
[2025-01-19 10:41] VITALS: BP 100/54; PULSE 87; O2SAT 98
[2025-01-19 10:51] VITALS: BP 136/75; PULSE 68; O2SAT 99
[2025-01-19 11:01] VITALS: BP 119/76; PULSE 69; RESP 18; O2SAT 100
== END 2025-01-19 11:01 | disposition home or self-care (01) ==
PROVIDERS: PCP Family Medicine; Visit Provider Internal Medicine Gastroenterology
PROC: 0DJD8ZZ Inspection of Lower Intestinal Tract, Via Natural or Artificial Opening Endoscopic (ICD-10-PCS; CPT 45378; principal; 2025-01-19 10:00)
DX: Z12.11 Encounter for screening for malignant neoplasm of colon (principal); D12.4 Benign neoplasm of descending colon; K57.30 Diverticulosis of large intestine without perforation or abscess without bleeding; K64.0 First degree hemorrhoids; K64.1 Second degree hemorrhoids; Z86.0101 Personal history of adenomatous and serrated colon polyps; Z80.0 Family history of malignant neoplasm of digestive organs; E03.9 Hypothyroidism, unspecified; Z85.850 Personal history of malignant neoplasm of thyroid; Z88.6 Allergy status to analgesic agent; Z88.5 Allergy status to narcotic agent; Z79.899 Other long term (current) drug therapy
CPT/HCPCS: 45385; J2003; J2704; J7120

== ENCOUNTER 2025-02-02 05:11 | Emergency (ER) | payer OTHER, SELFPAY ==
--- NOTE | 2025-02-02 05:17 | ED_ITS ---
Discharge Plan Disposition Patient Disposition: Home, Self-Care Condition: Good Prescriptions Prescriptions: No Action cholecalciferol (vitamin D3) 1,250 mcg (50,000 unit) capsule See Rx Instructions .Route .COMPLEX Qty: 14 3RF Rx Instructions: TAKE 1 CAPSULE BY MOUTH ONCE WEEKLY hydrocodone-acetaminophen 5-325 mg tablet 1 tab PO Q6H PRN (Reason: pain) Qty: 30 0RF phenazopyridine [Pyridium] 200 mg tablet 200 mg PO TID PRN (Reason: pain) Qty: 20 0RF cholecalciferol (vitamin D3) 25 mcg (1,000 unit) capsule See Rx Instructions .ROUTE .COMPLEX Qty: 90 3RF Dose Instruction: TAKE 1 CAPSULE BY MOUTH ONCE DAILY Rx Instructions: TAKE 1 CAPSULE BY MOUTH ONCE DAILY lisdexamfetamine [Vyvanse] 40 mg capsule 40 mg PO DAILY Qty: 30 0RF pregabalin 25 mg capsule 25 mg PO BID Qty: 60 2RF ondansetron HCl 4 mg tablet 4 mg PO Q6H 30 Days Qty: 120 0RF Voquezna 20 mg tablet 20 mg PO DAILY 56 Days Qty: 56 0RF levothyroxine 200 mcg tablet 200 mcg PO DAILY Qty: 90 0RF Rx Instructions: TAKE 1 TABLET BY MOUTH ONCE DAILY FOR HYPOTHYROID Wegovy 0.25 mg/0.5 mL pen injector 0.25 mg SQ WEEKLY Qty: 2 0RF ondansetron 4 mg tablet,disintegrating 4 mg PO Q8H PRN (Reason: Nausea) Qty: 30 2RF promethazine 12.5 mg tablet 12.5 mg PO TID PRN (Reason: nausea and vomiting) Qty: 30 0RF Rx Instructions: 3 doses during day; last dose no later than 4 hr before bedtime tamsulosin [Flomax] 0.4 mg capsule 0.4 mg PO NEEDED PRN (Reason: Kidney Stones) furosemide [Lasix] 20 mg tablet 20 mg PO NEEDED PRN (Reason: Edema) hydroxychloroquine [Plaquenil] 200 mg tablet 200 mg PO BID cyclobenzaprine 10 mg tablet 10 mg PO HS PRN (Reason: Insomnia) oxybutynin chloride 10 mg tablet extended release 24hr 10 mg PO DAILY PRN (Reason: Bladder Spasms) Referrals Follow up/Referrals: Sebas Michelle MD [Primary Care Provider, Family Practice] - See instructions Activity Restrictions/Add. Instructions Additional Instructions/Restrictions: Please continue taking your Zofran and Phenergan you have at home. Please follow-up with your primary care provider. Please return to the emergency department if you develop any new or worsening symptoms or become concerned for your health. Clinical Impressions Clinical Impression: Medication side effects, Nausea & vomiting Instructions Patient Instructions: Nausea and Vomiting-Adult Print Language Print Language: Trinidadian Discharge ED Provider: Callum Burden General Adult HPI <Callum Burden MD - Last Filed: 02/02/25 23:37> General Chief complaint: Nausea/Vomiting/Diarrhea Stated complaint: vometing, dehydration Time Seen by Provider: 02/02/25 05:16 History of Present Illness HPI narrative: 59-year-old female with no past history presents for severe nausea. She reports that she has been fighting it for the last 4 days. She had vomiting and diarrhea but has not had any vomiting the last couple of days she is just severely nauseous. She reports that she is on semaglutide and her pharmacy sent her a different concentration/compound and she accidentally took about 4 times her normal dose. Since then she has been severely ill. She denies any significant abdominal pain however. Reports that she has been trying to stay hydrated. Related Data Home Medications ?Medication ?Instructions ?Recorded ?Confirmed furosemide 20 mg tablet (Lasix) 20 mg PO NEEDED PRN Edema 10/26/24 01/19/25 hydroxychloroquine 200 mg tablet 200 mg PO BID 5 01/19/25 (Plaquenil) tamsulosin 0.4 mg capsule (Flomax) 0.4 mg PO NEEDED PRN Kidney 10/26/24 01/19/25 Stones cyclobenzaprine 10 mg tablet 10 mg PO HS PRN Insomnia 10/27/24 01/19/25 oxybutynin chloride 10 mg 10 mg PO DAILY PRN Bladder S pasms 10/27/24 01/19/25 tablet,extended release 24 hr Previous Rx's ?Medication ?Instructions ?Recorded cholecalciferol (vitamin D3) 1,250 See Rx Instructions .Route 04/20/23 mcg (50,000 unit) capsule .COMPLEX Supplement #14 caps phenazopyridine 200 mg tablet 200 mg PO TID PRN pain # 20 tabs 12/07/23 (Pyridium) cholecalciferol (vitamin D3) 25 See Rx Instructions .R oute 06/10/24 mcg (1,000 unit) capsule .COMPLEX #90 caps hydrocodone 5 mg-acetaminophen 325 1 tab PO Q6H PRN pa in #30 tabs 08/08/24 mg tablet lisdexamfetamine 40 mg capsule 40 mg PO DAILY #30 caps 10/12/24 (Vyvanse) pregabalin 25 mg capsule 25 mg PO BID Pain #60 caps 0 10/12/24 ondansetron HCl 4 mg tablet 4 mg PO Q6H 30 days #120 t abs 12/02/24 vonoprazan 20 mg tablet (Voquezna) 20 mg PO DAILY 8 we eks #56 tabs 12/26/24 levothyroxine 200 mcg tablet 200 mcg PO DAILY #90 tabs 01/23/25 semaglutide (weight loss) 0.25 0.25 mg (0.5 mL) SQ WEE KLY #2 mL 01/23/25 mg/0.5 mL subcutaneous pen injector (Wegovy) ondansetron 4 mg disintegrating 4 mg PO Q8H PRN Nausea #30 tabs 01/31/25 tablet promethazine 12.5 mg tablet 12.5 mg PO TID PRN nausea and 01/31/25 vomiting #30 tabs Allergies Allergy/AdvReac Type Severity Reaction Status Date / Time codeine AdvReac Mild Vomiting Verified 01/19/25 09:24 NSAIDS (Non-Steroidal AdvReac Unknown SEVERE Verified 01/19/25 09:24 Anti-Inflamma (NSAIDS ULCERS (NON-STEROIDAL ANTI-INFLAMMA) [facility] <Callum Burden MD - Last Filed: 02/02/25 23:37> [facility] Disclaimer: The information contained in this section may have been updated after the patient was seen, as this information can be updated by other users. Medical History (Updated 02/02/25 @ 06:47 by Callum Burden MD) Sore throat Pedal edema Insomnia Family history of colon cancer Thyroid cancer Colonic polyp Breast cancer screening by mammogram Liver mass, right lobe Renal cyst Nephrolithiasis Abnormal weight gain Dyspnea Abnormal electrocardiography Bradycardia Tachycardia Hx of supraventricular tachycardia Neuropathy Family history of breast cancer Attention Deficit Hyperactivity Disorder (ADHD) Ribs, multiple fractures Traumatic brain injury Thoracic back pain Hypothyroidism Surgical History History of thyroidectomy, total History of cholecystectomy History of pericardiectomy History of thoracic spinal fusion History of hysterectomy with bilateral oophorectomy Family History Other No significant family history Social History (Updated 01/19/25 @ 09:20 by Sydnee Forrester RN) Smoking Status: Never smoker alcohol intake: never substance use type: denies use current occupational status: employed Travel in the last 8 weeks?: None household members: spouse housing: house current occupation: [employer] caffeine: Yes Have you lived/traveled outside [place] in past 30 days?: No Contact w/someone who lives/traveled outside US past 30 days?: No Exposure to someone with infectious disease in past 14 days?: No Do you have a fever (greater than 100.4 F or 38 C)?: No Have you tested positive for COVID-19?: No Exposed to someone with COVID-19 in past 14 days?: No Do you have a sore throat?: No Do you have a cough?: No Do you have any weakness?: No Do you have any diarrhea?: Yes Are you experiencing any unusual bleeding?: No Do you have any muscle aches/pain?: No Do you have any abdominal pain?: No Are you experiencing loss of taste or smell?: No Other Medical History Have you received the Flu Vaccine for this season: No Have you received the Pneumonia Vaccine: No <Callum Burden MD - Last Filed: 02/02/25 23:37> ROS Obtained: Yes All systems reviewed & no additional complaints except as documented Physical Exam <Callum Burden MD - Last Filed: 02/02/25 23:37> General General appearance: alert and in no apparent distress Head Head exam: atraumatic and normocephalic Eye Eye exam: Present normal appearance, PERRL and EOMI ENT ENT exam: Present normal oropharynx and normal external ear exam Neck Neck exam: Present normal inspection and full ROM Chest Chest inspection: Present normal inspection and symmetric chest wall rise; Absent tenderness Respiratory Respiratory exam: Present normal lung sounds bilaterally; Absent respiratory distress Cardiovascular Cardiovascular exam: Present regular rate and normal rhythm Abdominal Exam Abdominal exam: Present soft; Absent distention, tenderness or guarding Extremities Exam Extremities exam: Present normal inspection; Absent edema or joint swelling Back Exam Back exam: Present normal inspection; Absent tenderness Neurological Exam Neurological exam: Present alert and oriented X3; Absent motor sensory deficit Psychiatric Psychiatric exam: Present normal affect and normal mood Skin Skin exam: Present warm, dry and normal color Lymphatic Lymphatic Findings: no adenopathy Medical Decision Making <Callum Burden MD - Last Filed: 02/02/25 23:37> Medical Records Medical records reviewed: Yes I reviewed the patient's medical records. Screening: Per USPSTF and CDC recommendations, given the prevalence of disease in our region, it is our hospital?s policy to screen for HIV and viral Hepatitis for all patients aged 18 and over and those with ongoing risk factors. Abraham Inquiry Pt receiving controlled substance: No Abraham was queried for this patient: No Vital Signs: 02/02/25 05:21 02/02/25 06:00 02/02/25 07:37 Temperature 98.1 F Pulse Rate 77 77 Pulse Rate [Right] 94 H Respiratory Rate 16 20 Blood Pressure 127/69 127/69 Blood Pressure [Right Arm] 143/94 H Blood Pressure Mean [Right Arm] 110 Blood Pressure Source [Right Arm] Automatic Cuff Blood Pressure Position [Right Arm] Sitting 02 Sat by Pulse Oximetry 98 96 Oxygen Delivery Method Room Air Room Air Room Air Lab Data Lab results reviewed: Yes I reviewed the patient's lab results. Lab Results 02/02/25 05:26: WBC 8.4, RBC 5.60 H, Hgb 16.5 H, Hct 49.8 H, MCV 88.9, MCH 29.5, MCHC 33.1, RDW 13.0, Plt Count 324, MPV 10.4, Neut % (Auto) 61.8, Lymph % (Auto) 26.6, [place] % (Auto) 8.3, Eos % (Auto) 1.8, Baso % (Auto) 1.3, Neut # (Auto) 5.2, Lymph # (Auto) 2.2, [place] # (Auto) 0.7, Eos # (Auto) 0.2, Baso # (Auto) 0.1, Sodium 142, Potassium 4.2, Chloride 96 L, Carbon Dioxide 36 H, Anion Gap 14.2, BUN 13, Creatinine 0.90, Estimated Creat Clear 86, Estimated GFR 64, Est GFR ( Amer) 78, Glucose 119 H, Calcium 9.5, Magnesium 2.2, Total Bilirubin 0.9, AST 31, ALT 24, Alkaline Phosphatase 74, Total Protein 8.5 H, Albumin 4.9, Globulin 3.6 H, Albumin/Globulin Ratio 1.4, Lipase 55, HCV Ab VIKI w/Rflx PCR Qn Negative, HIV Ag/Ab Combo Qual Negative 02/02/25 05:26 02/02/25 05:26 Orders (Tests/Meds): ED MEDICATIONS Discontinued Medications Generic Name Dose Route Start Last Admin Trade Name Freq PRN Reason Stop Dose Admin Droperidol 2.5 mg 02/02/25 05:17 02/02/25 05:29 Droperidol 5mg/2ml Vial IV 02/02/25 05:18 2.5 mg ONCE ONE Administration Lactated Ringer's 1,000 mls @ 999 mls/hr 02/02/25 05:30 02/02/25 06:35 Lactated Ringer's 1000 Ml Bag IV 02/02/25 06:30 Infused .Q1H1M CARMELITA Infusion ORDERS Category Date Time Status CBC w/Auto Diff [Complete Blood Count Auto Diff] Stat Lab 02/02/25 05:26 Completed CMP [Comprehensive Metabolic Panel] Stat Lab 02/02/25 05:26 Completed HIV Combo Stat Lab 02/02/25 05:26 Completed Hepatitis C Ab Qual. W/ RFX Stat Lab 02/02/25 05:26 Completed Lipase Stat Lab 02/02/25 05:26 Completed Magnesium Stat Lab 02/02/25 05:26 Completed ECG Data Tracing #1: I reviewed this ECG and interpreted as documented below: ECG initial impression date: 02/02/25 ECG initial impression time: 05:27 ECG normal with no acute: arrhythmias, ischemia, conduction abnormalities, chamber hypertrophy Medical Decision Narrative: 51-year-old female without significant past medical history presents for severe nausea and vomiting over the last several days after excellently taking approximately 4X her normal semaglutide dose. History was obtained via interactive discussion with patient, chart review. On arrival, patient is [afebrile, hemodynamically stable, satting appropriately, alert, oriented x4, GCS 15], moving all extremities spontaneously. Full physical exam performed and significant for no significant abdominal pain on exam Differential includes but is not limited to medication side effect, pancreatitis, dehydration. Patient was given 2.5 droperidol, 1 L LR for symptomatic management and correction of underlying abnormalities. Workup initiated including CBC CMP EKG lipase. On re-evaluation, patient [remains afebrile, HD stable.] Laboratory workup independently interpreted by me and significant for significant leukocytosis, negative lipase, unremarkable LFTs. CT imaging was considered was considered, but deemed unnecessary due to benign abdominal exam. Given patient history, exam and workup, patient's presentation most likely represents medication side effect of external semaglutide overdose. Intermittent discussion was had with patient regarding her presentation. She was discharged in stable condition. She has a appropriate supply of Phenergan and Zofran at home as needed for nausea.. <Hans Calvert, - Last Filed: 02/02/25 07:35> Vital Signs: 02/02/25 05:21 02/02/25 06:00 02/02/25 07:37 Temperature 98.1 F Pulse Rate 77 77 Pulse Rate [Right] 94 H Respiratory Rate 16 20 Blood Pressure 127/69 127/69 Blood Pressure [Right Arm] 143/94 H Blood Pressure Mean [Right Arm] 110 Blood Pressure Source [Right Arm] Automatic Cuff Blood Pressure Position [Right Arm] Sitting 02 Sat by Pulse Oximetry 98 96 Oxygen Delivery Method Room Air Room Air Room Air Lab Data Lab Results 02/02/25 05:26: WBC 8.4, RBC 5.60 H, Hgb 16.5 H, Hct 49.8 H, MCV 88.9, MCH 29.5, MCHC 33.1, RDW 13.0, Plt Count 324, MPV 10.4, Neut % (Auto) 61.8, Lymph % (Auto) 26.6, [place] % (Auto) 8.3, Eos % (Auto) 1.8, Baso % (Auto) 1.3, Neut # (Auto) 5.2, Lymph # (Auto) 2.2, [place] # (Auto) 0.7, Eos # (Auto) 0.2, Baso # (Auto) 0.1, Sodium 142, Potassium 4.2, Chloride 96 L, Carbon Dioxide 36 H, Anion Gap 14.2, BUN 13, Creatinine 0.90, Estimated Creat Clear 86, Estimated GFR 64, Est GFR ( Amer) 78, Glucose 119 H, Calcium 9.5, Magnesium 2.2, Total Bilirubin 0.9, AST 31, ALT 24, Alkaline Phosphatase 74, Total Protein 8.5 H, Albumin 4.9, Globulin 3.6 H, Albumin/Globulin Ratio 1.4, Lipase 55, HCV Ab VIKI w/Rflx PCR Qn Negative, HIV Ag/Ab Combo Qual Negative Orders (Tests/Meds): ED MEDICATIONS Discontinued Medications Generic Name Dose Route Start Last Admin Trade Name Freq PRN Reason Stop Dose Admin Droperidol 2.5 mg 02/02/25 05:17 02/02/25 05:29 Droperidol 5mg/2ml Vial IV 02/02/25 05:18 2.5 mg ONCE ONE Administration Lactated Ringer's 1,000 mls @ 999 mls/hr 02/02/25 05:30 02/02/25 06:35 Lactated Ringer's 1000 Ml Bag IV 02/02/25 06:30 Infused .Q1H1M CARMELITA Infusion ORDERS Category Date Time Status CBC w/Auto Diff [Complete Blood Count Auto Diff] Stat Lab 02/02/25 05:26 Completed CMP [Comprehensive Metabolic Panel] Stat Lab 02/02/25 05:26 Completed HIV Combo Stat Lab 02/02/25 05:26 Completed Hepatitis C Ab Qual. W/ RFX Stat Lab 02/02/25 05:26 Completed Lipase Stat Lab 02/02/25 05:26 Completed Magnesium Stat Lab 02/02/25 05:26 Completed ECG Data Tracing #1: EKG personally interpreted by me and demonstrates normal sinus rhythm with a rate of 80 bpm, normal axis, no NV prolongation, narrow QRS, no QTc prolongation. No ST elevation or depression. No overt signs of ischemia or arrhythmia Medical Decision Narrative: 51-year-old female without significant past medical history presents for severe nausea and vomiting over the last several days after excellently taking approximately 4X her normal semaglutide dose. History was obtained via interactive discussion with patient, chart review. On arrival, patient is [afebrile, hemodynamically stable, satting appropriately, alert, oriented x4, GCS 15], moving all extremities spontaneously. Full physical exam performed and significant for no significant abdominal pain on exam Differential includes but is not limited to medication side effect, pancreatitis, dehydration. Patient was given 2.5 droperidol, 1 L LR for symptomatic management and correction of underlying abnormalities. Workup initiated including CBC CMP EKG lipase. On re-evaluation, patient remains afebrile and hemodynamically stable Laboratory workup independently interpreted by me and significant for significant leukocytosis, negative lipase, unremarkable LFTs. CT imaging was considered was considered, but deemed unnecessary due to benign abdominal exam. Given patient history, exam and workup, patient's presentation most likely represents medication side effect of external semaglutide overdose. Intermittent discussion was had with patient regarding her presentation. She was discharged in stable condition. She has a appropriate supply of Phenergan and Zofran at home as needed for nausea. Transfer of care Dr. Calvert At the time of shift change this patient's disposition was pending reassessment after droperidol. She was able to tolerate oral intake well without recurrent vomiting and was able to ambulate without difficulty. Agree with assessment above with the patient has Phenergan and Zofran at home as needed for nausea. Therefore we will not prescribe additional antiemetic therapy at this time. Abdomen remains soft and nontender. She is hemodynamically stable. At this time all questions have answered and all parties are agreeable with the decision to discharge Procedures <Callum Burden MD - Last Filed: 02/02/25 23:37> Risk/Benefits of Procedure(s) Were Explained: Yes Critical Care <Callum Burden MD - Last Filed: 02/02/25 23:37> Critical Care Time Critical Care Time: No
[2025-02-02 05:21] VITALS: BP 143/94; PULSE 94; RESP 16; O2SAT 98; BMI 28.4
--- OUTSIDE RECORDS SUMMARY | 2025-02-02 05:21 | XMS_ITS | Clinical Summary ---
Author Organization Healthcare Address [address] [place] [address] Care Team Providers Care Transition Coach Name Role Phone Chau Posey MD Primary Care Provider [phone] Social History Tobacco Use Types Packs/Day Years Used Date Smoking Tobacco: Never Alcohol Use Standard Drinks/Week Comments Yes 0 (1 standard drink = 0.6 oz pure alcohol) Alcoholic Drinks/day: Minimum alcohol consumption Comments Unknown Sex and Gender Information Value Date Recorded Sex Assigned at Not on file Legal Sex Female 7:41 PM EDT Gender Identity Not on file Sexual Orientation Not on file Last Filed Vital Signs Vital Sign Reading Time Taken Comments Blood Pressure 131/85 10/25/2018 9:18 AM EDT Pulse 85 10/25/2018 9:18 AM EDT Temperature 36.6 C (97.9 F) 10/25/2018 9:18 AM EDT Respiratory Rate 16 10/25/2018 9:18 AM EDT Oxygen Saturation - - Inhaled Oxygen Concentration - - Weight 81.3 kg (179 lb 5.2 oz) 10/25/2018 9:18 A M EDT Height 167.6 cm (5' 6 ) 10/25/2018 9:18 AM EDT Body Mass Index 28.94 10/25/2018 9:18 AM EDT Plan of Treatment Health Maintenance Due Date Last Done Comments [facility]-Depression Screening 1966 [facility]-Infant/Child/Adol SDOH Screenings 1966 [facility]- SDOH Screenings 1984 [facility]-Adult SDOH Screenings 1984 [facility]-DTaP,Tdap,and Td Vaccine s (1 - Tdap) 1985 [facility]-Hepatitis B Vaccines (1 of 3 - 19+ 3-dose series) 1985 [facility]-Pap Smear 11/12/1987 [facility]-Cervical Cancer Screening 1996 [facility]-HPV/Cotest 1996 CT Colonography 11/12/2011 Colonoscopy 11/12/2011 FIT-DNA 11/12/2011 FIT 11/12/2011 FOBT 11/12/2011 Sigmoidoscopy 11/12/2011 [facility]-Colorectal Cancer Screening 11/12/2011 [facility]-Pneumococcal Vaccine: 50 + Years (1 of 1 - PCV) 2016 [facility]-Zoster Vaccines (1 of 2) 2016 [id number] Vaccine (1 - 20 24-25 season) 2024 [facility]-Influenza Vaccine (#1) 2025 HPV Vaccines Aged Out No longer eligi ble based on patient's age to complete this topic [facility]-HIB Vaccines Aged Out No longer e ligible based on patient's age to complete this topic [facility]-Hepatitis A Vaccines Aged Out No longer eligible based on patient's age to complete this topic [facility]-IPV Vaccines Aged Out No longer e ligible based on patient's age to complete this topic [facility]-Rotavirus Vaccines Aged Out No lo nger eligible based on patient's age to complete this topic Care Teams Transition Coach Relationship Specialty Start Date End Date Chau Posey MD [address] [place] [address] [address]1 [address] [place]OL[place] [id number] PCP - General 10/19/20
--- NOTE | 2025-02-02 05:27 | ECG_ITS ---
APPROVED REPORT Exam: Resting ECG HR:80 bpm ECG Measurements Heart Rate 80 AXES NM 153 P 67 QRSd 91 QRS 72 QT 399 T 100 QTc 435 Conclusion Sinus rhythm Normal axis Normal intervals NO STEMI Electronically signed by : Hans Calvert, 02/02/2025 16:59:11
[2025-02-02] MEDS: LACTATED RINGERS 1000ML 1,000 ML 999 ML IV (05:29)
[2025-02-02] MEDS: droPERidol 5MG/2ML VIAL 2.5 MG IV (05:29)
[2025-02-02 05:39] LABS: Albumin Level 4.9 g/dl (3.5-5.0); Chloride 96 mmol/L (98-107); Hematocrit 49.8 % (37.0-47.0); Hemoglobin 16.5 g/dL (12.2-16.2); Immature Granulocytes % 0.2 %; Mean Corpuscular HGB Conc 33.1 g/dL (31.8-35.4); Mean Corpuscular Hemoglobin 29.5 pg (27.0-31.2); Mean Corpuscular Volume 88.9 fl (81-99); Nucleated Red Blood Cells % 0 %; Platelet Count 324 K/mm3 (142-424); Red Blood Count 5.60 M/mm3 (4.20-5.40); Red Cell Distribution Width-SD 42.3 fL; White Blood Count 8.4 K/mm3 (4.8-10.8)
[2025-02-02 05:40] LABS: Potassium 4.2 mmoL/L (3.5-5.1); Sodium 142 mmol/L (136-145)
[2025-02-02 05:42] LABS: Alanine Aminotransferase 24 U/L (12-78); Anion Gap 14.2 mEq/L (5-15); Aspartate Amino Transferase 31 U/L (14-36); Blood Urea Nitrogen 13 mg/dl (7-17); Carbon Dioxide 36 mmol/L (22.0-30.0); Creatinine Clearance Estimated 86 mL/min (50-200); Creatinine,Serum 0.90 mg/dl (0.52-1.04); Estimated Glomerular Filt Rate 64 ml/min (>60); GFR (African American) 78 ML/MIN (>60)
[2025-02-02 05:43] LABS: Albumin/Globulin Ratio 1.4 (1.1-1.8); Alkaline Phosphatase 74 U/L (38-126); Bilirubin,Total 0.9 mg/dl (0.2-1.3); Calcium 9.5 mg/dl (8.4-10.2); Globulin 3.6 g/dL (1.3-3.2); Glucose 119 mg/dl (74-100); Lipase 55 U/L (23-300); Magnesium 2.2 mg/dl (1.6-2.3); Total Protein,Serum 8.5 g/dl (6.3-8.2)
[2025-02-02 06:00] VITALS: BP 127/69; PULSE 77; O2SAT 96
[2025-02-02 06:55] LABS: Hepatitis C Ab Qual. W/ RFX NEGATIVE (Negative)
[2025-02-02 07:37] VITALS: BP 127/69; PULSE 77; RESP 20; TEMP 36.7; O2SAT 96
== END 2025-02-02 07:39 | disposition home or self-care (01) ==
PROVIDERS: Emergency Provider Emergency Medicine; PCP Family Medicine
DX: R11.2 Nausea with vomiting, unspecified (principal); E78.5 Hyperlipidemia, unspecified; E03.9 Hypothyroidism, unspecified
CPT/HCPCS: 80053; 83690; 83735; 85025; 86803; 87389; 93005; 96361; 96374; 99284; J1790; J7120

== ENCOUNTER 2025-04-13 09:08 | Outpatient (CLI) | payer OTHER, SELFPAY ==
--- OUTSIDE RECORDS SUMMARY | 2025-04-13 09:19 | XMS_ITS | Clinical Summary ---
Author Organization Healthcare Address [address] [place] [address] Care Team Providers Care Fitness Assistant Name Role Phone Chau Posey MD Primary Care Provider [phone] Social History Tobacco Use Types Packs/Day Years [...] Date Last Done Comments [facility]-Depression Screening 1966 [facility]-/Child/Adol SDOH Screenings 1966 [facility]- SDOH Screenings 1984 [...] 2016 [facility]-Zoster Vaccines (1 of 2) 2016 [id number] Vaccine (1 - 20 24-25 season) 2025 [facility]-Influenza Vaccine (#1) 2025 HPV Vaccines Aged [...] age to complete this topic Care Teams Fitness Assistant Relationship Specialty Start Date End Date Chau Posey MD [address] [place] [address] [address] [place] [id number] PCP - General 10/19/20
[2025-04-14 10:16] LABS: Insulin Level Total 15.7 uIU/mL (2.6-24.9)
== END 2025-04-13 23:59 | disposition home or self-care (01) ==
LOC: LAB 09:08
PROVIDERS: PCP Family Medicine; Visit Provider Nurse Practitioner Family
DX: E66.3 Overweight (principal); R68.2 Dry mouth, unspecified; H04.123 Dry eye syndrome of bilateral lacrimal glands; R11.2 Nausea with vomiting, unspecified
CPT/HCPCS: 36415; 83525

== ENCOUNTER 2025-05-18 09:29 | Outpatient (CLI) | payer OTHER, SELFPAY ==
--- NOTE | 2025-05-18 09:31 | XR_ITS ---
FINAL REPORT CLINICAL HISTORY: left sided rib pain COMPARISON: None FINDINGS: Four views of the left ribs were obtained. There are fractures of the posterolateral left 4th, 5th, and 6th ribs. Fractures of the 5th, 6th, and 7th ribs on the right are also noted. These are age-indeterminate. There are mild chronic changes at the lung bases. Mild cardiomegaly is noted. No pneumothorax is identified. IMPRESSION: Age-indeterminate bilateral rib fractures as above. Reviewed, Interpreted and Dictated by Tobias Lai MD Transcribed by Catherine Gunderson Authenticated and . [facility]
== END 2025-05-18 23:59 | disposition home or self-care (01) ==
LOC: RAD 09:29
PROVIDERS: PCP Family Medicine; Visit Provider Student in an Organized Health Care Education/Training Program
DX: S22.42XA Multiple fractures of ribs, left side, initial encounter for closed fracture (principal); S22.41XA Multiple fractures of ribs, right side, initial encounter for closed fracture
CPT/HCPCS: 71100